=== PATIENT | female | born 1960 | race Hispanic/Latino ===

== ENCOUNTER 2021-12-09 12:59 | Emergency (ER) | payer OTHER ==
--- OUTSIDE RECORDS SUMMARY | 2021-12-09 13:01 | XMS REPORT | Continuity of Care Document ---
:1960 Author Organization [facility] t Address [facility] [address] [place] [address] Care Team Providers Name Role Phone AIDAN Attending Clinician Sin Perez MD S Attending Clinician Payers Payer Name Policy Type Policy Number Effective Date Expiration Date S ource Problems Condition Condition Condition Status Onset Resolution Last Treating Co mments Source Name Details Category Date Date Treatment Clinician Date Subjective Subjective Problem Active U T tinnitus tinnitus Physic i of left of left ans ear ear No known No known Disease Unive rs active active ity of problems problems [facility] History of History of Problem Resolve [place] arthritis arthritis d Phys ici ans Allergies, Adverse Reactions, Alerts Allergy Allergy Status Severity Reaction(s) Onset Inactive Treating Comm ents Source Name Type Date Date Clinician Codeine Propensi Active Itching 2020-0 Univer s ty to 04-03 ity of adverse 00:00: [place] reaction 00 [facility] CODEINE DRUG Active ITCHING 2020-0 Univers INGREDI 04-03 ity of 00:00: [place] 00 [facility] Ibuprofe Propensi Active Swelling 2020-0 Univ ers n ty to 04-03 ity of adverse 00:00: [place] reaction 00 [facility] IBUPROFE DRUG Active Swelling 2020-0 Univer s N INGREDI 04-03 ity of 00:00: [place] 00 [facility] Motrin Allergy Active [place] to drug Physici (finding ans ) NO KNOWN Drug Active Univers ALLERGIE Class ity of S [facility] codeine Allergy Active [place] to drug Physici (finding ans ) Social History Social Habit Start Date Stop Date Quantity Comments Source Sex Assigned At Uni versity [facility] Exposure to SARS-CoV-2 Not sure [facility] [place] (event) [facility] Smoking Status Start Date Stop Date Source Never smoked tobacco (finding) U T Physicians Unknown if ever smoked Universit y [facility] Medications Ordered Filled Start Stop Current Ordering Indication Dosage Frequency Signature Comments Components Source Medication Medication Date Date Medication? Clinician (SIG) Name Name No known No Univers medications [facility] Vital Signs Vital Name Observation Time Observation Value Comments Source Systolic blood 2020-04-04 03:33:00 136 mm[Hg] Univer sity of pressure [facility] Diastolic blood 2020-04-04 03:33:00 84 mm[Hg] Unive rsity of [facility] Heart rate 2020-04-04 03:33:00 72 /min [facility] Body temperature 2020-04-04 03:33:00 36.89 [facility] Respiratory rate 2020-04-04 03:33:00 18 /min [facility] Body height 2020-04-04 03:33:00 165.1 cm [facility] Body weight 2020-04-04 03:33:00 72.122 kg [facility] BMI 2020-04-04 03:33:00 26.46 kg/m2 [facility] Oxygen saturation in 2020-04-04 03:33:00 98 /min [facility] Arterial blood by [facility] Pulse oximetry Branch Procedures Procedure Date / Time Performing Clinician Source Performed CONSENT/REFUSAL FOR 2020-04-04 03:26:49 Doctor Unassigned, No Un [facility] DIAGNOSIS AND TREATMENT Name [facility] [place] History of Tonsillectomy [facility] History of Tubal [facility] Ligation History of Simple Bunion [facility] Exostectomy (Silver Procedure) Encounters Start End Encounter Admission Attending Care Care Encounter Source Date/Time Date/Time Type Type Clinicians Facility Department ID 2020-04-14 2020-04-14 Appointmen MEL HUNT Otorhinolar [id number] [place] 10:00:00 10:00:00 t; Genna, yngology - [facility] jackson RA, M.D. 2020-04-03 2020-04-03 Emergency [facility] [id number] [facility] 22:26:00 23:43:00 [facility] [place] [id number] [facility] [id number] [facility] [id number] [facility] 084 Branch 2020-04-03 2020-04-03 Emergency X [facility] ERT [id number] [facility] 22:26:00 22:26:00 ity [facility] Results This patient has no known results.
--- NOTE | 2021-12-09 14:01 | ER ---
Nurse's Notes [facility] Name: Jenny Rodriguez Age: 61 yrs Sex: Female : 1960 Arrival Date: 12/09/2021 Time: 13:22 Bed DIS2 Private MD: Diagnosis: Laceration without foreign body of other part of head-below right eye Presentation: 12/09 13:54 Chief complaint: Patient states: right scratch under eyelid. Coronavirus screen: At this time, the client does not indicate any symptoms associated with coronavirus-19. Ebola Screen: Patient negative for fever greater than or equal to 101.5 degrees Fahrenheit, and additional compatible Ebola Virus Disease symptoms Patient denies exposure to infectious person. Patient denies travel to an Ebola-affected area in the 21 days before illness onset. No symptoms or risks identified at this time. Risk Assessment: Do you want to hurt yourself or someone else? Patient reports no desire to harm self or others. Onset of symptoms. 13:54 Method Of Arrival: Ambulatory iw 13:54 Acuity: SHAYLA 4 iw Vital Signs: 14:03 BP 117 / 69; Pulse 89; Resp 16; Temp 98.0; Pulse Ox 100% on R/A; iw [place] Coma Score: 13:54 Eye Response: spontaneous(4). Verbal Response: oriented(5). Motor Response: obeys cp commands(6). Total: 15. ED Course: 13:22 Patient arrived in ED. am2 13:24 Andrei Fields PA is PHCP. cp 13:24 Tato Muñoz MD is Attending Physician. cp 13:53 Nell Rosa RN is Primary Nurse. iw 13:54 Triage completed. iw 13:54 Arm band placed on. 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 Exp: iw 09/24/2023. Lot #: [id number]. } Route: IM; Site: right deltoid; Outcome: 14:01 Discharge ordered by . cp 14:06 Patient left the ED. iw Signatures: Nell Rosa RN RN Andrei Fields PA PA Selin Cadet am2
--- NOTE | 2021-12-09 14:01 | EDPHYS ---
Physician Documentation [facility] Name: Jenny Rodriguez Age: 61 yrs Sex: Female : 1960 Arrival Date: 12/09/2021 Time: 13:22 Bed DIS2 Private MD: ED Physician Tato Muñoz HPI: 12/09 13:54 This 61 yrs old Female presents to ER via Unassigned with complaints of Facial Injury - cp scratch under right eye by rooster. 13:54 The patient or guardian reports injury, animal attack. The complaints affect the below cp right eye. Context of injury: Patient reports she was handling a rooster when the animal struck her below right eye. Onset: The symptoms/episode began/occurred 3 hour(s) ago. Associated signs and symptoms: The patient has no apparent associated signs or symptoms. ROS: 13:57 Constitutional: Negative for fever. cp 13:57 Eyes: Negative for discharge, redness, vision loss, visual disturbance. 13:57 Cardiovascular: Negative for chest pain, palpitations. 13:57 Respiratory: Negative for cough, shortness of breath, wheezing. 13:57 Abdomen/GI: Negative for abdominal pain, vomiting, diarrhea, constipation. 13:57 Skin: Positive for erythema, laceration(s), swelling, of the below right eye. 13:57 All other systems are negative. Exam: 13:58 Constitutional: The patient appears in no acute distress, alert, awake, comfortable, cp non-toxic, well developed, well nourished. 13:58 Head/face: Noted is a laceration(s), that is superficial, that is linear, of the below right eye, mild erythema and mild swelling noted. 13:58 Eyes: Pupils: equal, round, and reactive to light and accomodation, Extraocular movements: intact throughout, Conjunctiva: normal, no exudate, no injection, Sclera: no appreciated abnormality, Lids and lashes: appear normal, bilaterally. 13:58 ENT: External ear(s): are unremarkable, Nose: is normal, Posterior pharynx: Airway: no evidence of obstruction, patent. 13:58 Chest/axilla: Inspection: normal. 13:58 Respiratory: the patient does not display signs of respiratory distress, Respirations: normal, no use of accessory muscles, no retractions, labored breathing, is not present. Vital Signs: 14:03 BP 117 / 69; Pulse 89; Resp 16; Temp 98.0; Pulse Ox 100% on R/A; iw [place] Coma Score: 13:54 Eye Response: spontaneous(4). Verbal Response: oriented(5). Motor Response: obeys cp commands(6). Total: 15. MDM: 13:54 Patient medically screened. 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 Exp: iw 09/24/2023. Lot #: [id number]. } Route: IM; Site: right deltoid; Disposition: 18:20 Co-signature as Attending Physician, Tato Muñoz MD. rn Disposition Summary: 12/09/21 14:01 Discharge Ordered Location: Home cp Problem: new cp Symptoms: have improved cp Condition: Stable cp Diagnosis - Laceration without foreign body of other part of head - below right eye cp Followup: cp - With: Private Physician - When: 1 - 2 days - Reason: Worsening of condition Discharge Instructions: - Discharge Summary Sheet cp - Nonsutured Laceration Care cp - Facial Laceration cp Forms: - Medication Reconciliation Form cp - Thank You Letter cp - Antibiotic Education cp - Prescription Opioid Use cp Prescriptions: - mupirocin 2 % Topical ointment - apply 1 application by TOPICAL route 2-3 times daily for 7 days; 15 gram; cp Refills: 0, Product Selection Permitted - Augmentin 875-125 mg Oral Tablet - take 1 tablet by ORAL route every 12 hours for 7 days; 14 tablet; Refills: 0, cp Product Selection Permitted Signatures: Nell Rosa RN RN iw Nieto, Roman, MD MD rn Page, Corey, PA PA cp
[2021-12-09] MEDS ORDERED: TETANUS & DIPHTHERIA TOX,ADULT 0.5 ML VIAL ONE (14:04)
[2021-12-09 14:31] VITALS: BP 117/69; TEMP 98; O2SAT 100
== END 2021-12-09 14:06 | disposition home or self-care (01) ==
LOC: ER 12:59
DX: S01.81XA Laceration without foreign body of other part of head, initial encounter (principal); W61.32XA Struck by chicken, initial encounter; Z23 Encounter for immunization
CPT/HCPCS: 90471; 90714; 99282

== ENCOUNTER 2022-01-17 18:59 | Emergency (ER) | payer OTHER ==
[2022-01-17 20:39] LABS: Urine Blood Trace-intact (Negative); Urine Glucose Negative (Negative); Urine Protein Negative (Negative); Urine Specific Gravity <=1.005 (1.005-1.030)
[2022-01-17 20:51] LABS: Absolute Lymphocytes (CBC) 1.6 K/uL (0.7-4.9); Hematocrit 43.2 % (36.0-45.0); Lymphocytes % 27.5 % (15.3-44.8); MCV 91.9 fL (80-100); MPV 8.4 fL (7.6-11.3)
[2022-01-17 21:39] LABS: Urine Bacteria <20 /HPF (<20); Urine RBC NONE SEEN /HPF (NONE SEEN)
[2022-01-17 22:30] LABS: Albumin 3.8 g/dL (3.4-5.0); Bilirubin Total 0.4 mg/dL (0.2-1.0); Potassium 3.6 mmol/L (3.5-5.1); Protein, Total 7.2 g/dL (6.4-8.2)
--- NOTE | 2022-01-17 22:38 | EDPHYS ---
Physician Documentation [facility] Name: Jenny Rodriguez Age: 61 yrs Sex: Female : 1960 Arrival Date: 01/17/2022 Time: 19:01 Bed 6 Private MD: ED Physician Tato Muñoz Historical: - Allergies: 01/17 19:51 Codeine; as6 19:51 Ibuprofen; as6 - Home Meds: 19:51 None [Active]; as6 - PMHx: 19:51 None; as6 - PSHx: 19:51 Tonsillectomy; Ligation of fallopian tube; as6 - Immunization history:: Client reports receiving the 2nd dose of the Covid vaccine, moderna . - Social history:: Smoking status: Patient denies any tobacco usage or history of. Vital Signs: 19:48 BP 139 / 84; Pulse 76; Resp 18 S; Temp 98.2(O); Pulse Ox 100% on R/A; Weight 76.66 kg as6 (R); Height 5 ft. 2 in. (157.48 cm) (R); Pain 1/10; 20:45 BP 115 / 75; Pulse 74; Resp 16; Pulse Ox 97% ; aa9 22:35 BP 137 / 77; Pulse 68; Resp 18 S; Pulse Ox 98% on R/A; aa9 19:48 Body Mass Index 30.91 (76.66 kg, 157.48 cm) as6 MDM: 19:52 Patient medically screened. cp 22:37 ED course: VSS. Patient reports she doesn't want to wait to have CT abdomen/pelvis done cp and requesting to be discharged to home. 01/17 20:15 Order name: CBC with Diff; Complete Time: 22:29 cp 01/17 22:29 Interpretation: Reviewed. cp 01/17 20:15 Order name: CMP; Complete Time: 22:36 cp 01/17 20:15 Order name: Lipase; Complete Time: 22:36 cp 01/17 20:15 Order name: Urine Microscopic Only; Complete Time: 22:29 cp 01/17 22:29 Interpretation: Reviewed. cp 01/17 20:40 Order name: Urine Dipstick-Ancillary; Complete Time: 22:29 EDMS 01/17 22:29 Interpretation: Normal except: UBLD Trace-intact. cp 01/17 20:15 Order name: IV Saline Lock; Complete Time: 20:34 cp 01/17 20:15 Order name: Labs collected and sent; Complete Time: 20:34 cp 01/17 20:15 Order name: Urine Dipstick-Ancillary (obtain specimen); Complete Time: 20:39 cp Administered Medications: No medications were administered Disposition Summary: 01/17/22 22:38 Discharge Ordered Location: Home cp Problem: new cp Symptoms: are unchanged cp Condition: Stable cp Diagnosis - Lower abdominal pain, unspecified cp Followup: cp - With: Private Physician - When: 1 - 2 days - Reason: Recheck today's complaints Discharge Instructions: - Discharge Summary Sheet cp - Abdominal Pain, Adult cp Forms: - Medication Reconciliation Form cp - Thank You Letter cp - Antibiotic Education cp - Prescription Opioid Use cp Signatures: Dispatcher [employer] EDMS Andrei Fields PA PA cp Reji Christine, RN RN as6
--- NOTE | 2022-01-17 22:38 | ER ---
Nurse's Notes [facility] Name: Jenny Rodriguez Age: 61 yrs Sex: Female : 1960 Arrival Date: 01/17/2022 Time: 19:01 Bed 6 Private MD: Diagnosis: Lower abdominal pain, unspecified Presentation: 01/17 19:48 Chief complaint: Patient states: "I have this discomfort right here" pt c/o RLQ pain. as6 Coronavirus screen: At this time, the client does not indicate any symptoms associated with coronavirus-19. Ebola Screen: No symptoms or risks identified at this time. Risk Assessment: Do you want to hurt yourself or someone else? Patient reports no desire to harm self or others. Onset of symptoms is unknown. 19:48 Method Of Arrival: Ambulatory as6 19:48 Acuity: SHAYLA 3 as6 20:16 Initial Sepsis Screen: Does the patient meet any 2 criteria? No. Patient's initial aa9 sepsis screen is negative. Does the patient have a suspected source of infection? No. Patient's initial sepsis screen is negative. Triage Assessment: 20:16 General: Appears in no apparent distress. comfortable, Behavior is calm, cooperative. aa9 Pain: Complains of pain in right lower quadrant. Neuro: Level of Consciousness is awake, alert. Respiratory: Respiratory effort is even, unlabored. GI: Reports lower abdominal pain. Historical: - Allergies: 19:51 Codeine; as6 19:51 Ibuprofen; as6 - Home Meds: 19:51 None [Active]; as6 - PMHx: 19:51 None; as6 - PSHx: 19:51 Tonsillectomy; Ligation of fallopian tube; as6 - Immunization history:: Client reports receiving the 2nd dose of the Covid vaccine, moderna . - Social history:: Smoking status: Patient denies any tobacco usage or history of. Screenin:52 Abuse screen: Denies threats or abuse. Denies injuries from another. Nutritional as6 screening: No deficits noted. Tuberculosis screening: No symptoms or risk factors identified. Fall Risk None identified. Assessment: 22:35 Reassessment: see triage assessment. aa9 Vital Signs: 19:48 BP 139 / 84; Pulse 76; Resp 18 S; Temp 98.2(O); Pulse Ox 100% on R/A; Weight 76.66 kg as6 (R); Height 5 ft. 2 in. (157.48 cm) (R); Pain 1/10; 20:45 BP 115 / 75; Pulse 74; Resp 16; Pulse Ox 97% ; aa9 22:35 BP 137 / 77; Pulse 68; Resp 18 S; Pulse Ox 98% on R/A; aa9 19:48 Body Mass Index 30.91 (76.66 kg, 157.48 cm) as6 ED Course: 19:01 Patient arrived in ED. rg4 19:23 Andrei Fields PA is PHCP. cp 19:23 Tato Muñoz MD is Attending Physician. cp 19:45 Reji Christine, RN is Primary Nurse. as6 19:51 Triage completed. as6 19:52 Arm band placed on. as6 20:16 Bed in low position. Call light in reach. Side rails up X2. Pulse ox on. NIBP on. aa9 20:34 Inserted saline lock: 18 gauge in right antecubital area, using aseptic technique. aa9 Blood collected. 20:34 CBC with Diff Sent. aa9 20:34 CMP Sent. aa9 20:34 Lipase Sent. aa9 20:39 Urine Microscopic Only Sent. as6 22:41 No provider procedures requiring assistance completed. IV discontinued, intact, aa9 bleeding controlled, No redness/swelling at site. Pressure dressing applied. Administered Medications: No medications were administered Medication: 22:35 VIS not applicable for this client. aa9 Outcome: 22:38 Discharge ordered by . cp 22:41 Discharged to home ambulatory. aa9 22:41 Condition: stable 22:41 Discharge instructions given to patient, Instructed on discharge instructions, follow up and referral plans. Demonstrated understanding of instructions, follow-up care. 22:41 Patient left the ED. aa9 Signatures: Andrei Fields PA PA cp Garcia, Rubi rg4 Reji Christine, ZIGGY RN as6 Stacia Miller, ZIGGY RN aa9
[2022-01-17 23:10] VITALS: TEMP 98.2
[2022-01-17 23:13] VITALS: BP 137/77; O2SAT 98
== END 2022-01-17 22:41 | disposition home or self-care (01) ==
LOC: ER 18:59
DX: R10.31 Right lower quadrant pain (principal); Z88.5 Allergy status to narcotic agent; Z88.6 Allergy status to analgesic agent
CPT/HCPCS: 36415; 80053; 81003; 81015; 83690; 85025

== ENCOUNTER 2022-11-08 19:38 | Emergency (ER) | payer OTHER ==
--- NOTE | 2022-11-08 21:22 | RAD REPORT ---
EXAM DESCRIPTION: [place] Single View11/08/2022 9:12 pm CLINICAL HISTORY: epigastric pain COMPARISON: No comparisons TECHNIQUE: Portable AP view of the chest. FINDINGS: The lungs are clear.Mild haziness in the medial lung bases, could be artifactual, related to superimposition of soft tissues. No pneumothorax or effusion. The cardiomediastinal contours are u nremarkable. IMPRESSION: No acute cardiopulmonary process.
[2022-11-08 21:37] LABS: Absolute Lymphocytes (CBC) 1.7 K/uL (0.7-4.9); Hematocrit 40.5 % (36.0-45.0); Lymphocytes % 25.6 % (15.3-44.8); MCV 91.6 fL (80-100); MPV 7.9 fL (7.6-11.3); RBC Red Blood Cell Count 4.42 M/uL (3.86-4.86)
[2022-11-08 21:47] LABS: Protime INR 0.95
[2022-11-08 22:12] LABS: Albumin 4.1 g/dL (3.4-5.0); Bilirubin Direct 0.1 mg/dL (0-0.2); Bilirubin Total 0.4 mg/dL (0.2-1.0); Magnesium 2.1 mg/dL (1.6-2.4); Potassium 3.7 mEq/L (3.5-5.1); Protein, Total 7.8 g/dL (6.4-8.2); Troponin High Sensitivity 5.2 pg/mL (<58.9)
--- NOTE | 2022-11-08 22:49 | RAD REPORT ---
EXAM DESCRIPTION: US - Abdomen Exam Limited - 11/08/2022 10:21 pm CLINICAL HISTORY: EPIGASTRIC PAIN COMPARISON: No comparisons TECHNIQUE: Sonographic grayscale and color flow images of the right upper abdominal quadrant were obtained. FINDINGS: The gallbladder demonstrates no gallstones. No pericholecystic fluid or gallbladder wall t hickening. The common bile duct is normal measuring 2 mm. The liver demonstrates no findings of intrahepatic biliary dilatation. IMPRESSION: Normal ultrasound examination of the right upper quadrant.
[2022-11-08] MEDS ORDERED: MAGNES/ALUMIN/SIMET 30ML UCUP ONE (23:09)
[2022-11-08] MEDS ORDERED: MORPHINE 2 MG/ML SYR ONE (23:10)
[2022-11-08] MEDS ORDERED: ONDANSETRON 4 MG/2 ML VIAL ONE (23:10)
[2022-11-08] MEDS ORDERED: FAMOTIDINE 20 MG/2 ML VIAL IV ONE (23:10)
[2022-11-08] MEDS ORDERED: LIDOCAINE VISCOUS 2% SOLN 15 ML UDC ONE (23:10)
--- NOTE | 2022-11-08 23:52 | ER ---
Nurse's Notes [facility] Name: Jenny Rodriguez Age: 62 yrs Sex: Female : 1960 Arrival Date: 11/08/2022 Time: 19:38 Bed 8 Private MD: Diagnosis: Epigastric pain;Nausea Presentation: 11/08 19:54 Chief complaint: Patient states: epigastric pain x 2 days worse after eating. Coronavirus screen: Vaccine status: Patient reports receiving the 2nd dose of the covid vaccine. Ebola Screen: Patient negative for fever greater than or equal to 101.5 degrees Fahrenheit, and additional compatible Ebola Virus Disease symptoms. Initial Sepsis Screen: Does the patient meet any 2 criteria? No. Patient's initial sepsis screen is negative. Does the patient have a suspected source of infection? No. Patient's initial sepsis screen is negative. Risk Assessment: Do you want to hurt yourself or someone else? Patient reports no desire to harm self or others. 19:54 Method Of Arrival: Ambulatory 19:54 Acuity: SHAYLA 3 11/09 00:30 Onset of symptoms was November 09, 2022. aa9 Triage Assessment: 11/08 19:57 General: Appears uncomfortable, well groomed, well developed, Behavior is calm, kl cooperative. Pain: Complains of pain in xiphoid area. GI: Reports nausea. Historical: - Allergies: 19:56 Codeine; kl 19:56 Ibuprofen; kl 19:56 NSAIDS (Non-Steroidal Anti-Inflammatory Drug); kl 19:56 unknown steroid; kl - PSHx: 19:56 Ligation of fallopian tube; Tonsillectomy; kl - Immunization history:: Adult Immunizations Flu vaccine is up to date. - Social history:: Smoking status: Patient denies any tobacco usage or history of. Screenin:19 [facility] ED Fall Risk Assessment (Adult) History of falling in the last 3 months, aa9 including since admission No falls in past 3 months (0 pts) Confusion or Disorientation No (0 pts) Intoxicated or Sedated No (0 pts) Impaired Gait No (0 pts) Mobility Assist Device Used No (0 pt) Altered Elimination No (0 pt) Score/Fall Risk Level 0 - 2 = Low Risk Oriented to surroundings, Maintained a safe environment. Abuse screen: Denies threats or abuse. Denies injuries from another. Nutritional screening: Has had N/V for 3 or more days. Tuberculosis screening: No symptoms or risk factors identified. Assessment: 23:18 General: Appears in no apparent distress. comfortable, Behavior is calm, cooperative. aa9 Pain: Complains of pain in abdomen. Neuro: Level of Consciousness is awake, alert, obeys commands, Oriented to person, place, time, situation. Respiratory: Airway is patent Respiratory effort is even, unlabored. GI: Reports nausea. 11/09 00:30 GI: Bowel sounds present X 4 quads. aa9 00:30 Reassessment: Patient appears in no apparent distress at this time. Patient is alert, aa9 oriented x 3, equal unlabored respirations, skin warm/dry/pink. Patient denies pain at this time. Patient states feeling better. Patient states symptoms have improved. Vital Signs: 11/08 19:54 BP 140 / 74; Pulse 77; Resp 18; Temp 99(TE); Pulse Ox 97% on R/A; Weight 78.47 kg; kl Height 5 ft. 5 in. ; Pain 6/10; 23:18 BP 108 / 96; Pulse 85; Resp 18 S; Pulse Ox 100% ; aa9 23:39 BP 125 / 74; Pulse 81; Resp 17 S; Pulse Ox 96% on R/A; aa9 11/09 00:00 BP 131 / 79; Pulse 67; Resp 17 S; Pulse Ox 98% ; aa9 00:30 BP 125 / 85; Pulse 82; Resp 15; Temp 98.5; Pulse Ox 96% on R/A; aa9 11/08 19:54 Body Mass Index 28.79 (78.47 kg, 165.1 cm) 11/08 19:54 Pain Scale: Adult ED Course: 11/08 19:42 Patient arrived in ED. mr 19:45 Andrei Fields PA is PHCP. cp 19:45 Andrei Grey MD is Attending Physician. cp 19:56 Triage completed. kl 21:14 XRAY Chest (1 view) In Process Unspecified. EDMS 21:25 Lipase Sent. bc6 21:25 Basic Metabolic Panel Sent. bc6 21:25 CBC with Diff Sent. bc6 21:25 LFT's Sent. bc6 21:25 Magnesium Sent. bc6 21:25 Troponin HS Sent. bc6 21:25 Initial lab(s) drawn, by me, sent to lab. Inserted saline lock: 20 gauge in left bc6 antecubital area, using aseptic technique. 22:23 US Abdomen Limited In Process Unspecified. EDMS 23:17 Stacia Miller, RN is Primary Nurse. aa9 23:19 Patient has correct armband on for positive identification. Placed in gown. Bed in low aa9 position. Call light in reach. Side rails up X2. Pulse ox on. NIBP on. Door closed. Warm blanket given. 11/09 00:29 No provider procedures requiring assistance completed. IV discontinued, intact, aa9 bleeding controlled, No redness/swelling at site. Pressure dressing applied. 00:30 Arm band placed on. aa9 Administered Medications: 11/08 23:00 Drug: Ondansetron IVP 4 mg Route: IVP; Site: left antecubital; aa9 11/09 00:29 Follow up: Response: No adverse reaction aa9 11/08 23:10 Drug: Famotidine IVP 20 mg Route: IVP; Site: left antecubital; aa9 11/09 00:29 Follow up: Response: No adverse reaction aa9 11/08 23:18 Drug: morphine IVP or IV 2 mg Route: IVP; Infused Over: 4 mins; Site: left antecubital; aa9 11/09 00:29 Follow up: Response: No adverse reaction; Pain is decreased aa9 11/08 23:18 Drug: GI Cocktail without - (Maalox PO Suspension 30 ml, Lidocaine Mucous aa9 Membrane Liquid 2 % 15 ml) Route: PO; 11/09 00:29 Follow up: Response: No adverse reaction aa9 Medication: 00:30 VIS not applicable for this client. aa9 Outcome: 11/08 23:52 Discharge ordered by . syeda 11/09 00:29 Discharged to home ambulatory. aa9 Condition: stable Discharge instructions given to patient, Instructed on discharge instructions, follow up and referral plans. medication usage, Demonstrated understanding of instructions, follow-up care, medications, Prescriptions given X 2. 00:30 Patient left the ED. aa9 Signatures: Dispatcher [employer] EDDaksha Peoples RN RN kl Rivera, Mary mr Page, Corey, PA PA Stacia Santos, RN RN aa9 Heather Hilliard bc6
--- NOTE | 2022-11-08 23:52 | EDPHYS ---
Physician Documentation [facility] Name: Jenny Rodriguez Age: 62 yrs Sex: Female : 1960 Arrival Date: 11/08/2022 Time: 19:38 Bed 8 Private MD: Andrei Null HPI: 11/08 21:00 This 62 yrs old Female presents to ER via Ambulatory with complaints of cp Abdominal Pain. 21:00 The patient presents with abdominal pain in the epigastric area. Onset: The cp symptoms/episode began/occurred 2 day(s) ago. Historical: - Allergies: 19:56 Codeine; kl 19:56 Ibuprofen; kl 19:56 NSAIDS (Non-Steroidal Anti-Inflammatory Drug); kl 19:56 unknown steroid; kl - PSHx: 19:56 Ligation of fallopian tube; Tonsillectomy; kl - Immunization history:: Adult Immunizations Flu vaccine is up to date. - Social history:: Smoking status: Patient denies any tobacco usage or history of. ROS: 21:35 Constitutional: Negative for body aches, chills, fever, poor PO intake. cp 21:35 Eyes: Negative for injury, pain, redness, and discharge. cp 21:35 Cardiovascular: Negative for chest pain, edema, palpitations. 21:35 Respiratory: Negative for cough, shortness of breath, wheezing. 21:35 Abdomen/GI: Positive for abdominal pain, nausea. 21:35 All other systems are negative. cp Exam: 21:36 ECG was reviewed by the Attending Physician. cp 21:40 Constitutional: The patient appears in no acute distress, alert, awake, cp non-diaphoretic, non-toxic, well developed, well nourished. 21:40 Head/Face: Normocephalic, atraumatic. cp 21:40 Chest/axilla: Inspection: normal. 21:40 Cardiovascular: Rate: normal, Rhythm: regular. 21:40 Respiratory: the patient does not display signs of respiratory distress, Respirations: normal, Breath sounds: are clear throughout, no decreased breath sounds. 21:40 Abdomen/GI: Inspection: abdomen appears normal, Palpation: soft, in all quadrants, moderate abdominal tenderness, in the epigastric area. Vital Signs: 19:54 BP 140 / 74; Pulse 77; Resp 18; Temp 99(TE); Pulse Ox 97% on R/A; Weight 78.47 kg; kl Height 5 ft. 5 in. ; Pain 6/10; 23:18 BP 108 / 96; Pulse 85; Resp 18 S; Pulse Ox 100% ; aa9 23:39 BP 125 / 74; Pulse 81; Resp 17 S; Pulse Ox 96% on R/A; aa9 11/09 00:00 BP 131 / 79; Pulse 67; Resp 17 S; Pulse Ox 98% ; aa9 00:30 BP 125 / 85; Pulse 82; Resp 15; Temp 98.5; Pulse Ox 96% on R/A; aa9 11/08 19:54 Body Mass Index 28.79 (78.47 kg, 165.1 cm) 11/08 19:54 Pain Scale: Adult kl MDM: 11/08 19:58 Patient medically screened. [facility] 23:52 Data reviewed: vital signs, nurses notes, lab test result(s), EKG, radiologic studies. 11/08 20:53 Order name: Basic Metabolic Panel; Complete Time: 22:57 11/08 23:10 Interpretation: Reviewed. 11/08 20:53 Order name: CBC with Diff; Complete Time: 22:57 11/08 23:10 Interpretation: Reviewed. 11/08 20:53 Order name: LFT's; Complete Time: 22:57 11/08 23:10 Interpretation: Normal except: GLOB 3.7. 11/08 20:53 Order name: Magnesium; Complete Time: 22:57 11/08 20:53 Order name: PT-INR; Complete Time: 22:57 11/08 20:53 Order name: Troponin HS; Complete Time: 22:57 11/08 23:10 Interpretation: Reviewed. 11/08 20:53 Order name: Lipase; Complete Time: 22:57 11/08 20:53 Order name: XRAY Chest (1 view); Complete Time: 22:57 11/08 23:10 Interpretation: Report review. 11/08 21:24 Order name: US Abdomen Limited; Complete Time: 22:57 11/08 23:11 Interpretation: Report reviewed. 11/08 20:53 Order name: EKG; Complete Time: 20:54 11/08 20:53 Order name: Cardiac monitoring; Complete Time: 23:18 11/08 20:53 Order name: EKG - Nurse/Tech; Complete Time: : cp 11/08 20:53 Order name: IV Saline Lock; Complete Time: : cp 11/08 20:53 Order name: Labs collected and sent; Complete Time: : cp 11/08 20:53 Order name: O2 Per Protocol; Complete Time: : cp 11/08 20:53 Order name: O2 Sat Monitoring; Complete Time: :18 cp EC:36 Rate is 67 beats/min. Rhythm is regular. MI interval is normal. QRS interval is cp prolonged at 124 msec. QT interval is normal. T waves are Inverted in leads III, aVF, aVR, V2, V3, V4, V5. Interpreted by me. Reviewed by me. Administered Medications: 23:00 Drug: Ondansetron IVP 4 mg Route: IVP; Site: left antecubital; aa9 11/09 00:29 Follow up: Response: No adverse reaction 9 11/08 23:10 Drug: Famotidine IVP 20 mg Route: IVP; Site: left antecubital; aa9 11/09 00:29 Follow up: Response: No adverse reaction 9 11/08 23:18 Drug: morphine IVP or IV 2 mg Route: IVP; Infused Over: 4 mins; Site: left antecubital; aa9 11/09 00:29 Follow up: Response: No adverse reaction; Pain is decreased aa9 11/08 23:18 Drug: GI Cocktail without - (Maalox PO Suspension 30 ml, Lidocaine Mucous aa9 Membrane Liquid 2 % 15 ml) Route: PO; 11/09 00:29 Follow up: Response: No adverse reaction aa9 Disposition Summary: 11/08/22 23:52 Discharge Ordered Location: Home cp Problem: new cp Symptoms: have improved cp Condition: Stable cp Diagnosis - Epigastric pain cp - Nausea cp Followup: cp - With: Private Physician - When: 2 - 3 days - Reason: Recheck today's complaints Discharge Instructions: - Discharge Summary Sheet cp - Abdominal Pain, Adult cp - Gastroesophageal Reflux Disease, Adult cp - Nausea, Adult cp Forms: - Medication Reconciliation Form cp - Thank You Letter cp - Antibiotic Education cp - Prescription Opioid Use cp Prescriptions: - Protonix 40 mg Oral Tablet - take 1 tablet by ORAL route once daily; 30 tablet; Refills: 0, Product cp Selection Permitted - Zofran 4 mg Oral Tablet - take 1 tablet by ORAL route every 12 hours As needed; 20 tablet; Refills: 0, cp Product Selection Permitted Signatures: Dispatcher [employer] Daksha Gerard, RN Andrei Burleson MD MD cha Page, Corey, PA PA Stacia Santos RN RN aa9 Corrections: (The following items were deleted from the chart) 03:27 04 21:36 Rate is 67 beats/min. Rhythm is regular. MI interval is normal. QRS cp interval is prolonged at 124 msec. QT interval is normal. T waves are Inverted in leads III, aVF, aVR. Interpreted by me. Reviewed by me. cp
[2022-11-09 01:31] VITALS: BP 125/85; TEMP 98.5; O2SAT 96
--- NOTE | 2022-11-10 07:04 | EKG ---
Test Date: 2022-11-08 Test Time: 21:30:31 [employer] Crib Attendant: ENMANUEL MEASUREMENT RESULTS: Intervals: Rate: 67 NC: 138 QRSD: 124 QT: 438 QTc: 462 [place]: P: 7 NC: 138 QRS: 2 T: -9 INTERPRETIVE STATEMENTS: Normal sinus rhythm Right bundle branch block Abnormal ECG No previous ECG available for comparison Electronically Signed On 11-10-22 07:00:18 CDT by Devin Santana
== END 2022-11-09 00:30 | disposition home or self-care (01) ==
LOC: ER 19:38
DX: R10.13 Epigastric pain (principal); R11.0 Nausea; Z88.5 Allergy status to narcotic agent; Z88.6 Allergy status to analgesic agent; Z88.8 Allergy status to other drugs, medicaments and biological substances
CPT/HCPCS: 93005; 85025; 80048; 36415; 83735; 85610; 80076; 84484; 83690; 71045; 76705; J2270; J2405

== ENCOUNTER 2022-11-23 19:32 | Observation (INO) | payer OTHER ==
--- NOTE | 2022-11-23 20:07 | RAD REPORT ---
EXAM DESCRIPTION: CT - Ct Stroke Brain Wo Cont - 11/23/2022 8:01 pm CLINICAL HISTORY: STROKE ALERT COMPARISON: No comparisons TECHNIQUE: All CT scans are performed using dose optimization technique as appropriate and may inclu de automated exposure control or mA/KV adjustment according to patient size. FINDINGS: No intracranial hemorrhage, hydrocephalus or extra-axial fluid collection.No areas of brai n edema or evidence of midline shift. Arachnoid cyst at the left middle cranial fossa. The paranasal sinuses and mastoids are clear. The calvarium is intact. IMPRESSION: No acute intracranial abnormality. Conveyed to Dr. Weiss by Dr. Nolen at 2002 on 11/23/22
--- NOTE | 2022-11-23 20:38 | RAD REPORT ---
EXAM DESCRIPTION: CT - Neck Angio - 11/23/2022 8:14 pm CLINICAL HISTORY: tia COMPARISON: <Comparisons> TECHNIQUE: CT angiography of the neck vessels was performed with maximum intensity reformatted image s. All CT scans are performed using dose optimization technique as appropriate and may include automated exposure control or mA/KV adjustment according to patient size. FINDINGS: A left aortic arch is identified with normal three vessel configuration of the great vesse ls. No significant flow abnormality is seen of the common carotid bilaterally. No significant stenosis is identified involving the cervical segments of both internal carotid arteri es. Normal flow is seen within both vertebral arteries. CAROTID STENOSIS REFERENCE USING NASCET CRITERIA: Mild - <50% stenosis. Moderate - 50-69% stenosis. Severe - 70-94% stenosis. Near occlusion - 95-99% stenosis. Occluded - 100% stenosis. IMPRESSION: No significant flow abnormality of the neck vessels is identified.
--- NOTE | 2022-11-23 20:39 | RAD REPORT ---
EXAM DESCRIPTION: CT - Head angio - 11/23/2022 8:14 pm CLINICAL HISTORY: TIA COMPARISON: No comparisonsCt Stroke Brain Wo Cont dated 11/23/2022 TECHNIQUE: CT angiography of the head was performed with maximum intensity reformatted images. All CT scans are performed using dose optimization technique as appropriate and may include automated exposure control or mA/KV adjustment according to patient size. FINDINGS: Anterior circulation: No aneurysm or large vessel occlusion. No hemodynamically significant stenosis. No arteriovenous malf ormation identified. Posterior circulation: No aneurysm or large vessel occlusion. No hemodynamically significant stenosis. No arteriovenous malf ormation identified. CAROTID STENOSIS REFERENCE USING NASCET CRITERIA: Mild - <50% stenosis. Moderate - 50-69% stenosis. Severe - 70-94% stenosis. Near occlusion - 95-99% stenosis. Occluded - 100% stenosis. IMPRESSION: No significant flow abnormality is detected.
[2022-11-23 20:41] LABS: Absolute Lymphocytes (CBC) 1.4 K/uL (0.7-4.9); Lymphocytes % 27.3 % (15.3-44.8); MCV 91.9 fL (80-100); MPV 8.5 fL (7.6-11.3); RBC Red Blood Cell Count 4.24 M/uL (3.86-4.86)
--- NOTE | 2022-11-23 20:59 | EDPHYS ---
Physician Documentation [facility] Name: Jenny Rodriguez Age: 62 yrs Sex: Female : 1960 Arrival Date: 11/23/2022 Time: 19:32 Bed 8 Private MD: ED Physician Cayetano Weiss HPI: 11/23 20:58 This 62 yrs old Female presents to ER via Ambulatory with complaints of rt Tingling on the Left Side. 20:58 Patient presents to the ED with an intermittent tingling involving her left arm, left rt leg, the left side of her face that has been intermittent for the past 3 days. She denies any speech disturbance, motor weakness. She states that symptoms have significantly improved, presents for work-up for possible TIA. Denies other acute complaints at this time. Symptoms are moderate severity, no other aggravating or alleviating factors. Historical: - Allergies: 19:48 Codeine; kd3 19:48 NSAIDS (Non-Steroidal Anti-Inflammatory Drug); kd3 19:48 UNKNOWN STEROID; kd3 19:48 Ibuprofen; kd3 - PSHx: 19:48 Ligation of fallopian tube; Tonsillectomy; kd3 - Immunization history:: Adult Immunizations up to date. - Social history:: Smoking status: Patient denies any tobacco usage or history of. - Family history:: not pertinent. ROS: 20:58 Constitutional: Negative for fever, chills, and weight loss, Cardiovascular: Negative rt for chest pain, palpitations, and edema, Respiratory: Negative for shortness of breath, cough, wheezing, and pleuritic chest pain, Abdomen/GI: Negative for abdominal pain, nausea, vomiting, diarrhea, and constipation, MS/Extremity: Negative for injury and deformity, Skin: Negative for injury, rash, and discoloration, Psych: Negative for depression, anxiety, suicide ideation, homicidal ideation, and hallucinations. 20:58 Neuro: Positive for tingling, Negative for weakness. Exam: 20:58 Radiologist reports: No acute findings rt 20:58 Constitutional: This is a well developed, well nourished patient who is awake, alert, and in no acute distress. Head/Face: Normocephalic, atraumatic. Chest/axilla: Normal chest wall appearance and motion. Nontender with no deformity. No lesions are appreciated. Cardiovascular: Regular rate and rhythm with a normal S1 and S2. No gallops, murmurs, or rubs. Normal PMI, no JVD. No pulse deficits. Respiratory: Lungs have equal breath sounds bilaterally, clear to auscultation and percussion. No rales, rhonchi or wheezes noted. No increased work of breathing, no retractions or nasal flaring. Abdomen/GI: Soft, non-tender, with normal bowel sounds. No distension or tympany. No guarding or rebound. No evidence of tenderness throughout. Skin: Warm, dry with normal turgor. Normal color with no rashes, no lesions, and no evidence of cellulitis. MS/ Extremity: Pulses equal, no cyanosis. Neurovascular intact. Full, normal range of motion. Psych: Awake, alert, with orientation to person, place and time. Behavior, mood, and affect are within normal limits. 20:58 Eyes: Extraocular muscles intact, no visual field deficits. 20:58 Neuro: Speech normal, cranial nerves II through XII intact, strength and sensation intact in upper and lower extremities. Vital Signs: 19:41 Pulse 101; Resp 19; Temp 98.1(TE); Pulse Ox 98% on R/A; Weight 73.94 kg; Height 5 ft. 3 kd3 in. ; 19:48 BP 144 / 83; kd3 21:22 BP 144 / 82; Pulse 95; Resp 19; Pulse Ox 97% on R/A; pf1 21:46 BP 125 / 81; Pulse 81; Resp 17; Temp 98.5; Pulse Ox 100% on R/A; aa9 19:41 Body Mass Index 28.87 (73.94 kg, 160.02 cm) kd3 MDM: 19:46 Patient medically screened. rt 20:58 Differential diagnosis: TIA, CVA. Data reviewed: vital signs, nurses notes, lab test rt result(s), EKG, radiologic studies. Consideration of Admission/Observation Escalation of care including admission/observation considered. Management of patient was discussed with the following: Hospitalist: Agrees to admit. I considered the following discharge prescriptions or medication management in the emergency department Medications were administered in the Emergency Department. See MAR. Independent interpretation of the following test(s) in the Emergency Department CT Scan: My interpretation is No hemorrhage seen on interpretation of the CT scan images. Discussion of test interpretation with radiology: I had a discussion with radiology regarding a test interpretation. No hemorrhage. Care significantly affected by the following chronic conditions: Hypertension. Counseling: I had a detailed discussion with the patient and/or guardian regarding: the historical points, exam findings, and any diagnostic results supporting the discharge/admit diagnosis, radiology results, the need for further work-up and treatment in the hospital. 11/23 19:47 Order name: Basic Metabolic Panel; Complete Time: 21:15 rt 11/23 19:47 Order name: CBC with Diff; Complete Time: 21:15 rt 11/23 19:47 Order name: Hepatic Function; Complete Time: 21:15 rt 11/23 19:47 Order name: High Sensitivity Troponin; Complete Time: 21:15 rt 11/23 19:47 Order name: Magnesium; Complete Time: 21:15 rt 11/23 19:47 Order name: Protime (+inr); Complete Time: 21:15 rt 11/23 19:47 Order name: Ptt, Activated; Complete Time: 21:15 rt 11/23 21:52 Order name: Glucose, Ancillary Testing EDMS 11/23 19:47 Order name: CT Stroke Brain w/o Contrast; Complete Time: 20:51 rt 11/23 19:47 Order name: Stroke CXR 1 View; Complete Time: 21:15 rt 11/23 20:02 Order name: Head Angio CT; Complete Time: 20:51 rt 11/23 20:02 Order name: Neck Angio CT; Complete Time: 20:51 rt 11/23 19:47 Order name: EKG; Complete Time: 19:48 rt 11/23 19:47 Order name: Accucheck; Complete Time: 21:43 rt 11/23 19:47 Order name: Cardiac monitoring; Complete Time: 21:43 rt 11/23 19:47 Order name: EKG - Nurse/Tech; Complete Time: 21:43 rt 11/23 19:47 Order name: IV Saline Lock; Complete Time: 20:33 rt 11/23 19:47 Order name: Labs collected and sent; Complete Time: 20:33 rt 11/23 19:47 Order name: NPO; Complete Time: 21:43 rt 11/23 19:47 Order name: O2 Per Protocol; Complete Time: 20:33 rt 11/23 19:47 Order name: O2 Sat Monitoring; Complete Time: 20:33 rt 11/23 19:47 Order name: Stroke Swallow Screen; Complete Time: 21:43 rt 11/23 21:31 Order name: Misc. Order: Document NIH, perform bedside swallow screen; Complete Time: la1 21:43 Administered Medications: 21:45 Drug: Aspirin PO 325 mg Route: PO; aa9 22:59 Follow up: Response: No adverse reaction aa9 22:21 Drug: Potassium PO Effervescent Tablet 50 mEq Route: PO; aa9 22:59 Follow up: Response: No adverse reaction aa9 Disposition Summary: 11/23/22 20:58 Hospitalization Ordered Hospitalization Status: Observation rt Provider: Claus Friend rt Location: Telemetry/MedSurg (observation) rt Condition: Stable rt Problem: new rt Symptoms: have improved rt Bed/Room Type: Standard rt Room Assignment: 414(11/23/22 21:57) cg Diagnosis - Transient cerebral ischemic attack, unspecified rt Forms: - Medication Reconciliation Form rt - SBAR form rt Signatures: Dispatcher [employer] EDSameer Pedroza, SHUFFLE BOARD OPERATOR-C SHUFFLE BOARD OPERATOR-Cla1 Ana Priest RN RN cg Quiana Spears RN RN kd3 Stacia Miller RN RN aa9 Cayetano Weiss MD MD rt Corrections: (The following items were deleted from the chart) :57 20:58 rt cg
--- NOTE | 2022-11-23 20:59 | ER ---
Nurse's Notes [facility] Name: Jenny Rodriguez Age: 62 yrs Sex: Female : 1960 Arrival Date: 11/23/2022 Time: 19:32 Bed 8 Private MD: Diagnosis: Transient cerebral ischemic attack, unspecified Presentation: 11/23 19:41 Chief complaint: Patient states: I started with tingling sensation in my left leg and kd3 it went up to my left arm and a little bit around my left cheek. It last for about an hour and then it goes away. This all started 3 days ago. I have had no real weakness. just a bit of numbness that comes and goes. Coronavirus screen: Vaccine status: Patient reports receiving the 2nd dose of the covid vaccine. Ebola Screen: No symptoms or risks identified at this time. Initial Sepsis Screen: Does the patient meet any 2 criteria? No. Patient's initial sepsis screen is negative. Does the patient have a suspected source of infection? No. Patient's initial sepsis screen is negative. Risk Assessment: Do you want to hurt yourself or someone else? Patient reports no desire to harm self or others. Onset of symptoms was November 20, 2022. 19:41 Method Of Arrival: Ambulatory kd3 19:41 Acuity: SHAYLA 3 kd3 Triage Assessment: 19:48 General: Appears uncomfortable, Behavior is anxious. Pain: Denies pain. Neuro: Level of kd3 Consciousness is awake, alert, obeys commands, Oriented to person, place, time, situation. Neuro: Reports numbness in left cheek, left arm and left leg. Cardiovascular: Patient's skin is warm and dry. Respiratory: Airway is patent Trachea midline Respiratory effort is even, unlabored, Respiratory pattern is regular, symmetrical. Historical: - Allergies: 19:48 Codeine; kd3 19:48 NSAIDS (Non-Steroidal Anti-Inflammatory Drug); kd3 19:48 UNKNOWN STEROID; kd3 19:48 Ibuprofen; kd3 - PSHx: 19:48 Ligation of fallopian tube; Tonsillectomy; kd3 - Immunization history:: Adult Immunizations up to date. - Social history:: Smoking status: Patient denies any tobacco usage or history of. - Family history:: not pertinent. Screenin:43 [place] Swallow Protocol Exclusion Criteria: Exclusion Criteria Result: Proceed Brief aa9 Cognitive Screen What is your name? Normal, Where are you right now? Normal, What year is it? Normal. Oral Mechanism Examination Oral Mechanism Result: Normal. 3 oz Water Swallow Challenge: Pt able to drink all water without stopping, coughing, choking or throat clearing: Yes Result: PASS Notified: Sameer Richardson ELASTIC ATTACHER CHAINSTITCH-C. 22:40 [facility] ED Fall Risk Assessment (Adult) History of falling in the last 3 months, aa9 including since admission. Abuse screen: Denies threats or abuse. Denies injuries from another. Nutritional screening: No deficits noted. Tuberculosis screening: No symptoms or risk factors identified. Assessment: 20:41 Reassessment: Patient appears in no apparent distress at this time. Patient and/or aa9 family updated on plan of care and expected duration. Pain level reassessed. Patient is alert, oriented x 3, equal unlabored respirations, skin warm/dry/pink. Patient denies pain at this time. 21:22 Reassessment: Patient and/or family updated on plan of care and expected duration. Pain pf1 level reassessed. Patient is alert, oriented x 3, equal unlabored respirations, skin warm/dry/pink. 21:43 Reassessment: Patient appears in no apparent distress at this time. Patient and/or aa9 family updated on plan of care and expected duration. Pain level reassessed. Patient is alert, oriented x 3, equal unlabored respirations, skin warm/dry/pink. Patient denies pain at this time. 22:45 Reassessment: attempted to call report. aa9 23:03 Reassessment: Patient appears in no apparent distress at this time. report provided to usama richard. 23:19 Reassessment: Patient appears in no apparent distress at this time. Patient and/or aa9 family updated on plan of care and expected duration. Pain level reassessed. Patient is alert, oriented x 3, equal unlabored respirations, skin warm/dry/pink. Vital Signs: 19:41 Pulse 101; Resp 19; Temp 98.1(TE); Pulse Ox 98% on R/A; Weight 73.94 kg; Height 5 ft. 3 kd3 in. ; 19:48 BP 144 / 83; kd3 21:22 BP 144 / 82; Pulse 95; Resp 19; Pulse Ox 97% on R/A; pf1 21:46 BP 125 / 81; Pulse 81; Resp 17; Temp 98.5; Pulse Ox 100% on R/A; aa9 19:41 Body Mass Index 28.87 (73.94 kg, 160.02 cm) kd3 ED Course: 19:37 Patient arrived in ED. ja2 19:46 Cayetano Weiss MD is Attending Physician. rt 19:48 Triage completed. kd3 19:48 Arm band placed on left wrist. kd3 20:03 CT Stroke Brain w/o Contrast In Process Unspecified. EDMS 20:05 Stacia Miller, RN is Primary Nurse. aa9 20:15 Note: Inserted saline lock: 20g IV inserted into left antecubital area using aseptic jg10 technique. Blood collected.. 20:[address] In Process Unspecified. EDMS 20:[address] In Process Unspecified. EDMS 20:33 Basic Metabolic Panel Sent. aa9 20:33 CBC with Diff Sent. aa9 20:33 Hepatic Function Sent. aa9 20:33 High Sensitivity Troponin Sent. aa9 20:33 Magnesium Sent. aa9 20:33 Protime (+inr) Sent. aa9 20:33 Ptt, Activated Sent. aa9 20:53 Stroke CXR 1 View In Process Unspecified. EDMS 20:58 Claus Friend MD is Hospitalizing Provider. rt 22:41 Patient has correct armband on for positive identification. Call light in reach. Side aa9 rails up X2. Client placed on continuous cardiac and pulse oximetry monitoring. NIBP monitoring applied. 22:41 No provider procedures requiring assistance completed. Patient admitted, IV remains in aa9 place. Administered Medications: 21:45 Drug: Aspirin PO 325 mg Route: PO; aa9 22:59 Follow up: Response: No adverse reaction aa9 22:21 Drug: Potassium PO Effervescent Tablet 50 mEq Route: PO; aa9 22:59 Follow up: Response: No adverse reaction aa9 Medication: 22:41 VIS not applicable for this client. aa9 Outcome: 20:58 Decision to Hospitalize by Provider. rt 22:41 [facility], with chart. aa9 22:41 Condition: stable 22:41 Instructed on the need for admit. 23:19 Patient left the ED. aa9 Signatures: Dispatcher [employer] EDMS Mauro, Vidya ja2 Regan, Quiana, RN RN kd3 Stacia Miller, RN RN aa9 Kelly Sanchesg10 Cayetano Weiss MD MD rt finley, Pamala RN RN pf1
[2022-11-23 21:01] LABS: Albumin 3.7 g/dL (3.4-5.0); Bilirubin Direct 0.1 mg/dL (0-0.2); Bilirubin Indirect, Calculated 0.2 (0.2-0.8); Bilirubin Total 0.3 mg/dL (0.2-1.0); Magnesium 2.2 mg/dL (1.6-2.4); Troponin High Sensitivity 5.2 pg/mL (<58.9)
[2022-11-23 21:08] LABS: Protime INR 1.03
--- NOTE | 2022-11-23 21:13 | RAD REPORT ---
EXAM DESCRIPTION: RAD - Chest Single View - 11/23/2022 8:51 pm CLINICAL HISTORY: TIA COMPARISON: Chest Single View dated 11/08/2022 FINDINGS: Lines: None. Lungs: No evidence of edema or pneumonia. Pleural: No significant pleural effusions or pneumothorax. Cardiac: The heart size is within normal limits. Mediastinum: Within normal limits. Bones: No acute fractures. Other: None IMPRESSION: No acute cardiopulmonary disease.
[2022-11-23] MEDS ORDERED: ASPIRIN EC 325 MG TABLET PO ONE (21:28)
[2022-11-23] MEDS ORDERED: POTASSIUM 25 MEQ EFFERV TAB ONE (22:13)
--- NOTE | 2022-11-23 22:20 | P.HP ---
Certification for Inpatient Patient admitted to: Observation With expected LOS: <2 Midnights Patient will require the following post-hospital care: None Practitioner: I am a practitioner with admitting privileges, knowledge of patient current condition, hospital course, and medical plan of care. Services: Services provided to patient in accordance with Admission requirements found in Title 42 Section 412.3 of the Code of Federal Regulations Patient History Date of Service: 11/23/22 Reason for admission: TIA History of Present Illness: 62-year-old otherwise healthy female presents the emergency department with chief complaint of intermittent paresthesias of the left lower extremity, left upper extremity and left face lasting for approximately 1 hour/day for the last 3 days, currently resolved. She is evaluated in the emergency department her labs were significant for mild hypokalemia CT head without contrast negative for acute findings CTA of the head and neck negative for occlusive findings chest x- ray unremarkable. ED provider wishes to admit under observation for TIA. Allergies codeine Allergy (Unverified 11/23/22 21:52) Itching/Hives/Rash NSAIDS (Non-Steroidal Anti-Inflamma Allergy (Unverified 11/23/22 21:52) Itching/Hives/Rash - Past Medical/Surgical History -: None -: Tubal ligation Psychosocial/ Personal History: Patient lives at home with her family - Family History Mother -: Heart disease - Social History Smoking Status: Never smoker Alcohol use: No CD- Drugs: No Caffeine use: Yes Place of Residence: Home Review of Systems 10-point ROS is otherwise unremarkable Neurological: Other (Paresthesias), As per HPI Physical Examination - Physical Exam General: Alert, In no apparent distress, Oriented x3 HEENT: Atraumatic, PERRLA, Mucous membr. moist/pink, EOMI, Sclerae nonicteric Neck: Supple, 2+ carotid pulse no bruit, No LAD, Without JVD or thyroid abnormality Respiratory: Clear to auscultation bilaterally, Normal air movement Cardiovascular: Regular rate/rhythm, Normal S1 S2 Gastrointestinal: Normal bowel sounds, No tenderness Musculoskeletal: No tenderness Integumentary: No rashes Neurological: Normal gait, Normal speech, Normal strength at 5/5 x4 extr, Normal tone, Sensation intact, Cranial nerves 3-12 intact, Normal affect, Other (NIH 0) Lymphatics: No axilla or inguinal lymphadenopathy - Studies Laboratory Data (last 24 hrs) 11/23/22 20:20: PT 11.3, INR 1.03, APTT 29.2 11/23/22 20:20: WBC 5.20, Hgb 13.1, Hct 39.0, Plt Count 190 11/23/22 20:20: Sodium 139, Potassium 3.0 L, BUN 10, Creatinine 0.77, Glucose 99, Magnesium 2.2, Total Bilirubin 0.3, AST 19, ALT 23, Alkaline Phosphatase 88 Assessment and Plan - Plan Assessment: Left-sided paresthesias suspect TIA Hypokalemia Plan: Left-sided paresthesias suspect TIA NIH currently 0, CT head without contrast negative for acute findings, CT angio head and neck negative for occlusive findings, given aspirin in ED. She is a non-smoker, will monitor blood pressure closely, obtain echocardiogram, neurology consult, MRI of the brain. Continue aspirin, folic acid, statin. Lipid panel/A1c pending. Hypokalemia Replaced in ED, protocol in place. DVT PPX: Lovenox Code status: Full Discharge Plan: Home Plan to discharge in: 24 Hours - Advance Directives Does patient have a Living Will: No Does patient have a Durable POA for Healthcare: No - Code Status/Comfort Care Code Status Assessed: Yes (Full code) Critical Care: No Time Spent Managing Pts Care (In Minutes): 55
[2022-11-23] MEDS ORDERED: ONDANSETRON 4 MG/2 ML VIAL IV PRN (23:34)
[2022-11-23] MEDS ORDERED: NA CHLORIDE 0.9% 1,000 ML IV SCH (23:34)
[2022-11-24 05:19] LABS: Absolute Lymphocytes (CBC) 1.7 K/uL (0.7-4.9); Lymphocytes % 31.2 % (15.3-44.8); MCV 92.1 fL (80-100); MPV 8.3 fL (7.6-11.3); RBC Red Blood Cell Count 4.12 M/uL (3.86-4.86)
[2022-11-24 05:29] VITALS: BMI 28.8
--- NOTE | 2022-11-24 05:34 | EKG ---
Test Date: 2022-11-23 Test Time: 21:36:24 Health And Wellness Director: ALFIE MEASUREMENT RESULTS: Intervals: Rate: 80 PA: 142 QRSD: 140 QT: 406 QTc: 468 [employer]: P: 18 PA: 142 QRS: 24 T: -6 INTERPRETIVE STATEMENTS: Normal sinus rhythm Right bundle branch block Abnormal ECG Compared to ECG 11/08/2022 21:30:31 No significant changes Electronically Signed On 11-24-22 05:32:50 CDT by Devin Santana
[2022-11-24 05:43] LABS: Potassium 3.7 mEq/L (3.5-5.1); Thyroid Stimulating Hormone 0.673 uIU/mL (0.358-3.740)
--- NOTE | 2022-11-24 07:24 | P.PN ---
Date of Service: 11/24/22 Subjective: ROS: 10 point ROS as noted above, otherwise negative Physical Exam: GEN: Alert, oriented, NAD HEENT: Normal conjunctiva, sclera anicteric CV: Regular rate and rhythm, no edema Pulm: Nonlabored respirations on room air ABD: Soft, nontender, nondistended MSK: No joint tenderness Integumentary: No rashes Neuro: Normal speech, normal affect, Normal strength at 5/5 x4 extr, NIH 0 vitals reviewed Problem List: Left-sided paresthesias suspect TIA Hypokalemia Left-sided paresthesias suspect TIA NIH currently 0 CT head without contrast: negative for acute findings CTA head and neck: negative for occlusive findings MRI brain 11/24: no evidence of acute infarct given aspirin in ED echocardiogram pending neurology consulted Continue aspirin, folic acid, statin Lipid panel/A1c pending Hypokalemia Replaced in ED, protocol in place. VTE: Lovenox Code: Full Dispo: Home 1-2 days
--- NOTE | 2022-11-24 08:00 | RAD REPORT ---
EXAM DESCRIPTION: MRI - Brain Wo Cont - 11/24/2022 7:43 am CLINICAL HISTORY: left sided paresthesia COMPARISON: Ct Stroke Brain Wo Cont dated 11/23/2022 TECHNIQUE: Sagittal T1-weighted images were obtained along with PD/heavily T2-weighted and T2-FLAIR images. Axial DWI and ADC mapping sequences were also obtained along with coronal heavily T2-weighted images were obtained. FINDINGS: No intracranial hemorrhage, mass or acute infarction. There is no edema or shift of midlin e structures. No extra-axial fluid collections. Signal voids are seen as a normal finding in the malathi r intracranial vessels. No significant white matter disease. Arachnoid cyst at the left middle crania l fossa. Mastoid air cells and paranasal sinuses are clear. IMPRESSION: No acute intracranial abnormality. Specifically, no evidence of acute infarct.
[2022-11-24] MEDS ORDERED: FOLIC ACID 1 MG TABLET PO SCH (09:00)
[2022-11-24] MEDS ORDERED: ENOXAPARIN 40 MG/0.4 ML SQ SCH (09:00)
[2022-11-24] MEDS ORDERED: POTASSIUM CL SA 10 MEQ TAB PO ONE (09:00)
[2022-11-24] MEDS ORDERED: ASPIRIN EC 81 MG TAB PO SCH (09:00)
[2022-11-24 09:06] VITALS: BP 128/71; TEMP 97.1
[2022-11-24 09:23] LABS: RBC Red Blood Cell Count 4.34 M/uL (3.86-4.86)
[2022-11-24 10:01] LABS: Folic Acid, (Folate) 17.2 ng/mL (3.1-17.5)
[2022-11-24 10:44] VITALS: O2SAT 95
--- NOTE | 2022-11-24 10:48 | P.DS ---
Admission Date: 11/23/22 Discharge Date: 11/24/22 Disposition: ROUTINE DISCHARGE Discharge Condition: GOOD Reason for Admission: TIA Consultations: Neurology - Dr. Lomeli Brief History of Present Illness: 62yo F, PMH: none Patient presents the emergency department with chief complaint of intermittent paresthesias of the left lower extremity, left upper extremity and left face lasting for approximately 1 hour/day for the last 3 days, currently resolved. She is evaluated in the emergency department her labs were significant for mild hypokalemia CT head without contrast negative for acute findings CTA of the head and neck negative for occlusive findings chest x-ray unremarkable. ED provider wishes to admit under observation for TIA. Hospital Course: Problem List: Left-sided paresthesias suspect TIA Seizure Hypokalemia Patient presented with intermittent paresthesias of the left lower extremity, left upper extremity and left face lasting <1hr for the last 3 days, currently resolved. CT head without contrast negative for acute findings. CTA of the head and neck negative was for occlusive findings. MRI without any acute findings. Dr. Lomeli, Neurology was consulted and although atypical, can't rule out TIA or less likely, but seizure. Recommended treatment as if she had a TIA with aspirin/statin/folic acid. Further lab testing was performed and she was found to have vitamin B12 and vitamin D deficiency, which may play a role in these symptoms. She was deemed stable for discharge. New Prescriptions / Medications: Folic acid Aspirin 81mg Atorvastatin Vitamin B12 Vitamin D Continue other home medications as previously prescribed. Recheck vitamin levels in a few months Follow up: PCP 3-5 days Neurology ~1 month Consideration for EEG if symptoms persist. Dr. Lomeli discussed with patient to keep event diary for further assistance while exact etiology is under investigation / if recurs. Physical Exam: GEN: Alert, oriented, NAD HEENT: Normal conjunctiva, sclera anicteric CV: Regular rate and rhythm, no edema Pulm: Nonlabored respirations on room air ABD: Soft, nontender, nondistended MSK: No joint tenderness Integumentary: No rashes Neuro: Normal speech, normal affect, Normal strength at 5/5 x4 extr, NIH 0 Vital Signs/Physical Exam: Temp Pulse Resp BP Pulse Ox 97.1 F 62 16 128/71 100 11/24/22 08:00 11/24/22 08:00 11/24/22 08:00 11/24/22 08:00 11/24/22 08:00 Laboratory Data at Discharge: WBC 5.40 thou/uL (4.3-10.9) 11/24/22 04:55 Hgb 12.8 g/dL (12.0-15.0) 11/24/22 04:55 Hct 38.0 % (36.0-45.0) 11/24/22 04:55 Plt Count 189 thou/uL (152-406) 11/24/22 04:55 PT 11.3 SECONDS (9.5-12.5) 11/23/22 20:20 INR 1.03 11/23/22 20:20 APTT 29.2 SECONDS (24.3-36.9) 11/23/22 20:20 Sodium 139 mEq/L (136-145) 11/24/22 04:55 Potassium 3.7 mEq/L (3.5-5.1) D 11/24/22 04:55 BUN 8 mg/dL (7-18) 11/24/22 04:55 Creatinine 0.63 mg/dL (0.55-1.02) 11/24/22 04:55 Glucose 91 mg/dL (74-106) 11/24/22 04:55 Magnesium 2.2 mg/dL (1.6-2.4) 11/23/22 20:20 Total Bilirubin 0.3 mg/dL (0.2-1.0) 11/23/22 20:20 AST 19 U/L (15-37) 11/23/22 20:20 ALT 23 U/L (13-56) 11/23/22 20:20 Alkaline Phosphatase 88 U/L (45-117) 11/23/22 20:20 Triglycerides 66 mg/dL (<150) 11/24/22 04:55 Cholesterol 174 mg/dL (<200) 11/24/22 04:55 HDL Cholesterol 60 mg/dL (40-60) 11/24/22 04:55 Cholesterol/HDL Ratio 2.90 11/24/22 04:55 Home Medications: Aspirin [Aspirin EC 81 MG] 81 mg PO DAILY 30 Days #30 tab 11/24/22 Atorvastatin Calcium [Lipitor] 40 mg PO DAILY 30 Days #30 tab 11/24/22 Cholecalciferol (Vitamin D3) [Dialyvite Vitamin D3 Max] 50,000 unit PO EVERY 7TH DAY #6 tab 11/24/22 Cyanocobalamin (Vitamin B-12) [Vitamin B-12] 1,000 mcg PO DAILY 30 Days #30 tab 11/24/22 Folic Acid 1 mg PO DAILY 30 Days #30 tab 11/24/22 New Medications: Aspirin [Aspirin EC 81 MG] 81 mg PO DAILY 30 Days #30 tab Cholecalciferol (Vitamin D3) [Dialyvite Vitamin D3 Max] 50,000 unit PO EVERY 7TH DAY #6 tab Folic Acid 1 mg PO DAILY 30 Days #30 tab Atorvastatin Calcium [Lipitor] 40 mg PO DAILY 30 Days #30 tab Cyanocobalamin (Vitamin B-12) [Vitamin B-12] 1,000 mcg PO DAILY 30 Days #30 tab Physician Discharge Instructions: Patient presented with intermittent paresthesias of the left lower extremity, left upper extremity and left face lasting <1hr for the last 3 days, currently resolved. CT head without contrast negative for acute findings. CTA of the head and neck negative was for occlusive findings. MRI without any acute findings. Dr. Lomeli, Neurology was consulted and although atypical, can't rule out TIA or less likely, but seizure. Recommended treatment as if she had a TIA with aspirin/statin/folic acid. Further lab testing was performed and she was found to have vitamin B12 and vitamin D deficiency, which may play a role in these symptoms. She was deemed stable for discharge. New Prescriptions / Medications: Folic acid Aspirin 81mg Atorvastatin Vitamin B12 Vitamin D Continue other home medications as previously prescribed. Recheck vitamin levels in a few months Follow up: PCP 3-5 days Neurology ~1 month Consideration for EEG if symptoms persist. Dr. Lomeli discussed with patient to keep event diary for further assistance while exact etiology is under investigation / if recurs. Followup: Nino Lomeli MD [ASSOCIATE-ACTIVE - CAN ADMIT] - Jakob Alvarado DO [Primary Care Provider] - Time spent managing pt's care (in minutes): 45
--- NOTE | 2022-11-24 13:21 | CON ---
Reason For Consultation: Consultation called because of possible transient ischemic attack. History Of Present Illness: Ms. Rodriguez is a 62-year-old patient with no significant past medical hist ory, who developed intermittent left lower and upper extremity along with face sensory disturbances a bout 3 days prior to coming to [facility]. She said the symptoms would begin in her foot wi th a tingling feeling that will move to her anterior leg towards the thigh and then from the thigh to her hand and then they involved the face. Symptoms last 20 minutes up to an hour and has recurred a few times about perhaps 3 times prior to coming to the hospital. At [facility], blood work showed mild hypokalemia. Her head CT scan and CT angiogram of her head and neck showed no significa nt abnormalities. She was given aspirin 325 mg daily, potassium was replaced and she was admitted fo r a stroke workup. Her brain MRI which was done earlier today revealed no acute ischemic or hemorrha gic changes. The study showed a left middle cranial fossa arachnoid cyst. Her chest x-ray showed no acute cardiopulmonary disease. Her electrocardiogram was normal sinus rhythm with right bundle-bran ch block. Since her hospitalization, she denies additional episodes of transient sensory disturbances and senso ry disturbances were not accompanied by weakness or alterations of consciousness. Past Medical History: No significant past medical history. Past Surgical History: Tubal ligation. Allergies: CODEINE AND NONSTEROIDAL ANTIINFLAMMATORY MEDICATIONS CAUSED HIVES AND RASH. Family History: Heart disease in mother. Social History: No alcohol, tobacco, or IV drug use, she did in the past. She did use lots of Diet Coke, but has stopped and she was actually on a very restricted diet, she said about a 500 calorie di et for a while and was actually not hydrating well when these episodes occurred, but she had just rec ently restarted to drink maybe 80 ounces, sometimes little bit more water a day and began to come off her low-calorie diet and this was after seeing Dr. Alvarado, her primary care physician and she is com ing back to about a 1000 calories a day diet. Review of Systems: No recent fevers, chills, myalgias, arthralgias, rash, headache, weight change. No psychiatric issue s. No gastrointestinal or genitourinary issues. Physical Examination: Vital Signs: Blood pressure 128/71, pulse 62, respiratory rate 16, temperature 97.1. Note earlier t derrick, blood pressure was down to 98/68 and that was around 4 in this morning and blood pressure 128/7 1 at 8 a.m., oxygen saturation 95% on room air. General: Ms. Rodriguez is lying in her hospital bed. She is in no acute distress. HEENT: She is normocephalic, atraumatic. Sclerae anicteric. Oropharynx is pink and moist. Neck: Supple. Chest: Clear. Heart: Regular. Extremities: Showed no clubbing, cyanosis, or edema. Neurological: She is alert and oriented to person, place, and situation. She follows all commands a ppropriately. Cranial nerves 2 through 12 are intact. Motor in the upper and lower extremities are intact proximally and distally, 5/5 strength. Sensory exam intact in upper and lower extremities pro ximally and distally to light touch and temperature. Coordination intact in upper and lower extremit ies. Reflexes 2+ symmetric upper and lower extremities. Gait good stance, stride, and arm swing. Laboratory Studies: Complete blood count with differential is completely normal. Coagulation panel completely normal. Her vitamin D level is low at 19.2. Vitamin B12 level is slightly low, therapeut ic at 220. She has normal liver function studies, normal kidney function with creatinine being 0.63, BUN 8, hemoglobin A1c of 5.3. Assessment: Ms. Rodriguez is a 62-year-old patient with about 3 episodes of paroxysmal dysesthesia, ting ling in the left foot, leg, thigh, hand, and face. Episodes have been stereotyped. Her differential diagnoses includes transient ischemic attacks and simple partial seizures. She has no focal neurolo gical deficits. Plan: 1.Enteric-coated aspirin 81 mg daily. 2.Folic acid 1 mg daily. 3.For her low vitamin D, vitamin D 50,000 units weekly for a month and 5000 units daily. 4.Vitamin B12 2500 mcg sublingual daily. 5.Since the LDL cholesterol which is done at 101, she should be on a statin. Recommend a high-dose statin and when LDL is less than 70, may decrease to low-dose statin or to supplement to maintain the LDL lower than 70. 6.She was instructed on diet modification and hydration along with activity and rest that are helpfu l to reduce the recurrence of TIAs or strokes. In addition, she may maintain a diary of events, and if need be, after discharge she may have ambulatory video EEG monitoring to characterize these episod es with respect to the possibility of electrographic seizures. She may be discharged home and follow up in Dr. Lomeli's office within a month. EVANS Voice ID: [id number] Report ID: [id number]
--- NOTE | 2022-11-24 13:25 | ECHO ---
HEIGHT: 5 ft 3 in WEIGHT: 163 lb 0 oz DATE OF STUDY: 11/24/[address]: Sameer Bai NP 2-DIMENSIONAL: YES M.MODE: YES DOPPLER: YES COLOR FLOW: YES TDS: NO PORTABLE: NO DEFINITY: NO BUBBLE STUDY: NO DIAGNOSIS: STROKE CARDIAC HISTORY: CATHERIZATION: NO SURGERY: NO PROSTHETIC VALVE: NO PACEMAKER: NO MEASUREMENTS (cm) DIASTOLIC (NORMALS) SYSTOLIC (NORMALS) IVSd 0.9 (0.6-1.2) LA Diam 2.6 (1.9-4.0) LVEF 62% LVIDd 3.8 (3.5-5.7) LVIDs 2.6 (2.0-3.5) %FS 33% LVPWd 1.0 (0.6-1.2) Ao Diam 2.9 (2.0-3.7) 2 DIMENSIONAL ASSESSMENT: RIGHT ATRIUM: NORMAL LEFT ATRIUM: NORMAL RIGHT VENTRICLE: NORMAL LEFT VENTRICLE: NORMAL TRICUSPID VALVE: NORMAL MITRAL VALVE: NORMAL PULMONIC VALVE: NORMAL AORTIC VALVE: NORMAL PERICARDIAL EFFUSION: NONE AORTIC ROOT: NORMAL LEFT VENTRICULAR WALL MOTION: NORMAL. DOPPLER/COLOR FLOW: NORMAL. COMMENTS: NORMAL 2D ECHO WITH DOPPLER NO WALL MOTION ABNORMALITY NO EFFUSION TECHNOLOGIST: BENJAMIN FONTANA
[2022-11-24] MEDS ORDERED: ATORVASTATIN 20 MG TAB PO SCH (21:00)
== END 2022-11-24 12:18 | disposition home or self-care (01) ==
LOC: ER 19:32 → ERHOLD 21:29 → 4TH 22:56
PROVIDERS: ADMIT Hospitalist; ATTEND Hospitalist
DX: R20.8 Other disturbances of skin sensation (principal); E87.6 Hypokalemia; R56.9 Unspecified convulsions; R29.700 NIHSS score 0; E53.8 Deficiency of other specified B group vitamins; E55.9 Vitamin D deficiency, unspecified; Z88.6 Allergy status to analgesic agent
CPT/HCPCS: 93005; 93306; 85025 ×2; 80048 ×2; 36415; 83735; 85610; 85044; 80061; 82947; 80076; 85730; 84443; 83036; 84484; 82746; 82607; 82306; 70496; 70498; 70450; 71045; 70551; 92610; 99285; Q9967; J1650; J7030; G0378 ×4

== ENCOUNTER 2023-11-14 06:11 | Emergency (ER) | payer OTHER ==
[2023-11-14] MEDS ORDERED: HYDROCODONE/APAP 10/325 TAB ONE (06:38)
[2023-11-14] MEDS ORDERED: methocarbamoL 500 MG TAB ONE (06:38)
--- NOTE | 2023-11-14 08:10 | RAD REPORT ---
EXAM DESCRIPTION: CT - [id number] - 11/14/2023 7:03 am CLINICAL HISTORY: PAIN COMPARISON: Neck Angio dated 11/23/2022; Ct Stroke Brain Wo Cont dated 11/23/2022 TECHNIQUE: Axial thin cut noncontrast CT images of the head were obtained. Axial thin cut noncontrast CT images of the cervical spine were obtained. Multiplanar reformatted images were generated and reviewed. All CT scans are performed using dose optimization technique as appropriate and may include automated exposure control or mA/KV adjustment according to patient size. FINDINGS: CT HEAD WITHOUT CONTRAST: Left middle cranial fossa arachnoid cyst again seen. No acute hemorrhage, hydrocephalus or other extr a-axial collection is identified.No areas of brain edema or midline shift. The paranasal sinuses and mastoids are clear.The calvarium is intact. CT CERVICAL SPINE WITHOUT CONTRAST: No fracture or subluxation. Multilevel cervical spine spondylitic changes with gentle reversal of bharati dosis again seen. Findings contribute to variable degrees of neural foraminal narrowing, at least mod erate bilaterally at C6-7, and to lesser degree at C5-6. No bony central canal stenosis. No preverteb ral soft tissues swelling is identified. IMPRESSION: No acute traumatic intracranial or cervical spine findings. Stable findings as above.
--- NOTE | 2023-11-14 08:20 | ER ---
Nurse's Notes [facility] Name: Jenny Rodriguez Age: 63 yrs Sex: Female : 1960 Arrival Date: 11/14/2023 Time: 06:11 Bed 6 Private MD: Diagnosis: Headache, neck pain Presentation: 11/13 06:15 Chief complaint: Patient states: neck pain of 8,onset May 2023, S/P fall, worse pf1 tonight at 0000 with a stabbing pain to that radiates to left side of neck. Patient stated was going to rehab for physical therapy and has scheduled an appointment with orthopedic on this Sunday. 06:15 Coronavirus screen: Client denies travel out of the [place] in the last 14 days. At this pf1 time, the client does not indicate any symptoms associated with coronavirus-19. Ebola Screen: Patient negative for fever greater than or equal to 101.5 degrees Fahrenheit, and additional compatible Ebola Virus Disease symptoms. Acute neurological deficit: none identified. Initial Sepsis Screen: Does the patient meet any 2 criteria? No. Patient's initial sepsis screen is negative. Does the patient have a suspected source of infection? No. Patient's initial sepsis screen is negative. Risk Assessment: Do you want to hurt yourself or someone else? Patient reports no desire to harm self or others. Onset of symptoms. Onset of symptoms was May 30, 2023. 06:15 Method Of Arrival: Ambulatory pf1 06:15 Acuity: SHAYLA 3 pf1 Triage Assessment: 06:15 General: Appears in no apparent distress. comfortable, well groomed, well developed, pf1 Behavior is calm, cooperative, appropriate for age, quiet. 06:15 Pain: Complains of pain in neck Pain currently is 8 out of 10 on a pain scale. pf1 Musculoskeletal: Reports pain in neck pain that radiates to occipital region. Historical: - Allergies: 06:34 Codeine; pf1 06:34 Ibuprofen; pf1 06:34 NSAIDS (Non-Steroidal Anti-Inflammatory Drug); pf1 06:34 UNKNOWN STEROID; pf1 - PMHx: 06:34 Hypercholesterolemia; pf1 - PSHx: 06:34 Ligation of fallopian tube; Tonsillectomy; pf1 06:35 feet; pf1 - Immunization history:: Adult Immunizations up to date, 3 doses of Moderna Last tetanus immunization: < 5 years ago Flu vaccine is up to date. - Infectious Disease History:: Denies. - Social history:: Smoking status: Patient denies any tobacco usage or history of. Patient uses alcohol, occasionally. Patient/guardian denies using street drugs. - Family history:: not pertinent. Screenin:36 [facility] ED Fall Risk Assessment (Adult) History of falling in the last 3 months, jj7 including since admission No falls in past 3 months (0 pts). [facility] ED Fall Risk Assessment (Adult) Confusion or Disorientation No (0 pts) Intoxicated or Sedated No (0 pts) Impaired Gait No (0 pts) Mobility Assist Device Used No (0 pt) Altered Elimination No (0 pt) Score/Fall Risk Level 0 - 2 = Low Risk Oriented to surroundings, Maintained a safe environment, Educated pt \T\ family on fall prevention, incl call for assistance when getting out of bed. Abuse screen: Denies threats or abuse. Nutritional screening: No deficits noted. Tuberculosis screening: No symptoms or risk factors identified. Assessment: 06:36 General: Appears in no apparent distress. comfortable, Behavior is calm, cooperative, jj7 appropriate for age. Pain: Complains of pain in left posterior aspect of neck and left lateral aspect of neck. Neuro: Level of Consciousness is awake, alert, obeys commands, Oriented to person, place, time, situation, Appropriate for age Chairman & Ceo are equal bilaterally Moves all extremities. Full function Gait is steady, Speech is normal. Musculoskeletal: Reports pain in left posterior aspect of neck and left lateral aspect of neck. 07:31 Reassessment: Patient appears in no apparent distress at this time. No changes from ko1 previously documented assessment. Patient and/or family updated on plan of care and expected duration. Pain level reassessed. Patient is alert, oriented x 3, equal unlabored respirations, skin warm/dry/pink. Vital Signs: 06:15 BP 154 / 85; Pulse 93; Resp 18; Temp 98.1; Pulse Ox 99% on R/A; Weight 71.21 kg; Height pf1 5 ft. 3 in. ; Pain 8/10; 07:13 BP 133 / 74; Pulse 74; Resp 18 S; Pulse Ox 97% on R/A; kc6 08:18 BP 128 / 72; Pulse 70; Resp 16; Pulse Ox 99% ; ko1 06:15 Body Mass Index 27.81 (71.21 kg, 160.02 cm) pf1 06:15 Pain Scale: Adult pf1 [place] Coma Score: 06:39 Eye Response: spontaneous(4). Motor Response: obeys commands(6). Verbal Response: sp4 oriented(5). Total: 15. ED Course: 06:13 Patient arrived in ED. jj6 06:16 Joe Gomez MD is Attending Physician. sp4 06:26 Umer Medina, RN is Primary Nurse. rv 06:33 Triage completed. pf1 06:36 Patient has correct armband on for positive identification. Bed in low position. Call jj7 light in reach. Provided Education on: USE OF CALL YAN. 06:36 No provider procedures requiring assistance completed. jj7 07:00 Arm band placed on. kc6 07:00 Report received from ZIGGY Mckeon. kc6 07:05 CT Head C Spine In Process Unspecified. EDMS 07:10 Attending Physician role handed off by Joe Gomez MD sp3 07:10 Meron Pratt MD is Attending Physician. sp3 08:19 Assisted to bathroom. ko1 08:20 Patient did not have IV access during this emergency room visit. ko1 Administered Medications: 06:44 Not Given (Patient Refused): norco10 mg-325 mg 2 tabs PO once jj7 06:44 Drug: Methocarbamol PO 1500 mg PO once Route: PO; jj7 07:15 Follow up: Response: No adverse reaction ko1 Medication: 06:36 VIS not applicable for this client. jj7 Outcome: 08:19 Discharge ordered by . sp3 08:21 Discharged to home ambulatory, ko1 08:21 Condition: stable 08:21 Discharge instructions given to patient, Instructed on discharge instructions, follow up and referral plans. medication usage, Demonstrated understanding of instructions, follow-up care, medications, Prescriptions given X 2, 08:25 Patient left the ED. ko1 Signatures: Dispatcher [employer] EDIL Umer Medina, ZIGGY RN rv Meron Pratt MD MD sp3 Farzana Alexis jj6 Heidy Olson RN RN kc6 Daniela Hernandez RN RN ko1 Emile Eubanks, RN RN jj7 Rosa Roach, RN RN pf1 Joe Gomez MD MD sp4
--- NOTE | 2023-11-14 08:20 | EDPHYS ---
Physician Documentation [facility] Name: Jenny Rodriguez Age: 63 yrs Sex: Female : 1960 Arrival Date: 11/14/2023 Time: 06:11 Bed 6 Private MD: ED Physician Meron Pratt HPI: 11/13 06:16 This 63 yrs old Female presents to ER via Unassigned with complaints of Neck sp4 and Upper Back Pain. 06:39 63-year-old female presents with worsening neck and upper headache. Patient states she sp4 had an accident in May 2023 where she fell backwards causing injury to the posterior head and neck. This morning her pain has intensified prompting arrival to the emergency room. Patient denied weakness. . Historical: - Allergies: 06:34 Codeine; pf1 06:34 Ibuprofen; pf1 06:34 NSAIDS (Non-Steroidal Anti-Inflammatory Drug); pf1 06:34 UNKNOWN STEROID; pf1 - PMHx: 06:34 Hypercholesterolemia; pf1 - PSHx: 06:34 Ligation of fallopian tube; Tonsillectomy; pf1 06:35 feet; pf1 - Immunization history:: Adult Immunizations up to date, 3 doses of Moderna Last tetanus immunization: < 5 years ago Flu vaccine is up to date. - Infectious Disease History:: Denies. - Social history:: Smoking status: Patient denies any tobacco usage or history of. Patient uses alcohol, occasionally. Patient/guardian denies using street drugs. - Family history:: not pertinent. ROS: 06:39 Constitutional: Negative for fever, chills, and weight loss, positive for neck pain and sp4 headache 06:39 All other systems are negative, Exam: 06:39 Constitutional: This is a well developed, well nourished patient who is awake, alert, sp4 and in no acute distress. Head/Face: Normocephalic, atraumatic. Eyes: Pupils equal round and reactive to light, extra-ocular motions intact. Lids and lashes normal. Conjunctiva and sclera are not injected. Cornea within normal limits. Periorbital areas with no swelling, redness, or edema. ENT: Nares patent. No nasal discharge, no septal abnormalities noted. Tympanic membranes are normal and external auditory canals are clear. Oropharynx with no redness, swelling, or masses, exudates, or evidence of obstruction, uvula midline. Mucous membranes moist. Neck: Trachea midline, no thyromegaly or masses palpated, and no cervical lymphadenopathy. Supple, full range of motion without nuchal rigidity, or vertebral point tenderness. Chest/axilla: Normal chest wall appearance and motion. Nontender with no deformity. No lesions are appreciated. Cardiovascular: Regular rate and rhythm with a normal S1 and S2. No gallops, murmurs, or rubs. Normal PMI, no JVD. No pulse deficits. Respiratory: Lungs have equal breath sounds bilaterally, clear to auscultation and percussion. No rales, rhonchi or wheezes noted. No increased work of breathing, no retractions or nasal flaring. Abdomen/GI: Soft, with normal bowel sounds. No distension or tympany. No guarding or rebound. No evidence of tenderness throughout. Back: No spinal tenderness. No costovertebral tenderness. Skin: Warm, dry with normal turgor. Normal color with no rashes, no lesions, and no evidence of cellulitis. MS/ Extremity: Pulses equal, no cyanosis. Neurovascular intact. Full, normal range of motion. Neuro: Awake and alert, GCS 15, oriented to person, place, time, and situation. Cranial nerves II-XII grossly intact. Motor strength 5/5 in all extremities. Sensory grossly intact. Psych: Awake, alert, with orientation to person, place and time. Behavior, mood, and affect are within normal limits Vital Signs: 06:15 BP 154 / 85; Pulse 93; Resp 18; Temp 98.1; Pulse Ox 99% on R/A; Weight 71.21 kg; Height pf1 5 ft. 3 in. ; Pain 8/10; 07:13 BP 133 / 74; Pulse 74; Resp 18 S; Pulse Ox 97% on R/A; kc6 08:18 BP 128 / 72; Pulse 70; Resp 16; Pulse Ox 99% ; ko1 06:15 Body Mass Index 27.81 (71.21 kg, 160.02 cm) pf1 06:15 Pain Scale: Adult pf1 [place] Coma Score: 06:39 Eye Response: spontaneous(4). Motor Response: obeys commands(6). Verbal Response: sp4 oriented(5). Total: 15. MDM: 06:20 Patient medically screened. sp4 07:12 Differential diagnosis: arthritis, C-Spine Fracture Cervical Raiculopathy Cervical sp4 Spondylosis cervical strain. Data reviewed: vital signs, nurses notes, old medical records, radiologic studies, CT scan. Transition of care: After a detail discussion of the patient's case, care is transferred to Meron Pratt MD. 07:26 ED course: Patient taken over by me by nighttime physician at 7 AM. Patient is a sp3 64-year-old female with hyperlipidemia with headache now getting better. Patient states the muscle laxer has helped significantly. CT scan of the head and C-spine are pending and if negative we will safely discharge patient home.. 08:19 ED course: CT negative and patient is improved. We will discharge her on tramadol and sp3 Flexeril and she has an appointment with orthopedist for this Sunday 2 days from now.. 11/13 06:26 Order name: CT Head C Spine; Complete Time: 08:14 sp4 Administered Medications: 06:44 Not Given (Patient Refused): norco10 mg-325 mg 2 tabs PO once jj7 06:44 Drug: Methocarbamol PO 1500 mg PO once Route: PO; jj7 07:15 Follow up: Response: No adverse reaction ko1 Disposition Summary: 11/14/23 08:19 Discharge Ordered Notes: Location: Home sp3 Condition: Stable sp3 Diagnosis - Headache, neck pain sp3 Followup: sp3 - With: Private Physician - When: Upon discharge from the Emergency Department - Reason: Continuance of care Discharge Instructions: - Discharge Summary Sheet sp3 - General Headache Without Cause sp3 Forms: - Medication Reconciliation Form sp3 - Antibiotic Education sp3 - Prescription Opioid Use sp3 - Patient Portal Instructions sp3 - Leadership Thank You Letter sp3 Prescriptions: - Tramadol 50 mg Oral Tablet - take 1 tablet ORAL route every 8 hours as needed; 12 tablet; Refills: 0, sp3 Product Selection Permitted - Cyclobenzaprine 5 mg Oral Tablet - take 1 tablet ORAL route 3 times per day As needed; 15 tablet; Refills: 0, sp3 Product Selection Permitted Signatures: Dispatcher [employer] EDMS Meron Pratt MD MD sp3 Emile Eubanks RN RN jj7 Rosa Roach RN RN pf1 Joe Gomez MD MD sp4 Daniela Hernandez RN ko1
[2023-11-14 09:08] VITALS: BP 128/72; TEMP 98.1; O2SAT 99
== END 2023-11-14 08:25 | disposition home or self-care (01) ==
LOC: ER 06:11
DX: R51.9 Headache, unspecified (principal); M54.2 Cervicalgia; Z88.5 Allergy status to narcotic agent; Z88.6 Allergy status to analgesic agent; Z88.8 Allergy status to other drugs, medicaments and biological substances
CPT/HCPCS: 70450; 72125; 99283

== ENCOUNTER 2024-09-05 09:18 | Emergency (ER) | payer OTHER ==
[2024-09-05 10:55] LABS: Absolute Basophils 0.1 K/uL (0-0.5); Absolute Eosinophils 0.1 K/uL (0-0.5); Absolute Monocytes 0.3 K/uL (0.1-1.3); Absolute Neutrophil 3.3 K/uL (1.8-8.0); Basophils % 1.1 % (0-1.3); Eosinophils % 1.3 % (0-4.4); Hematocrit 43.7 % (36.0-45.0); Hemoglobin 14.9 g/dL (12.0-15.0); Lymphocytes % 20.9 % (15.3-44.8); MCH 31.5 pg (27.0-35.0); MCV 92.6 fL (80-100); MPV 8.6 fL (7.6-11.3); Monocytes % 5.5 % (3.3-12.3); Neutrophils % 71.2 % (41.7-73.7); Nucleated Red Blood Cells % 0.1 % (0-0); Platelets 227 thou/uL (152-406); RBC Red Blood Cell Count 4.72 M/uL (3.86-4.86); Red Cell Distribution Width 13.4 % (12.1-15.2)
--- NOTE | 2024-09-05 11:03 | RAD REPORT ---
EXAM: CT brain without contrast HISTORY: STROKE ALERT COMPARISON: 11/14/2023 TECHNIQUE: Multiple contiguous axial images were obtained and a CT of the brain without contrast. Sag ittal and coronal reformats were performed. One or more of the following dose reduction techniques were used: Automated exposure control, adjust ment of the mA and/or kV according to patient size, and/or iterative reconstruction. FINDINGS: No evidence of hydrocephalus, intracranial hemorrhage, or extra-axial fluid collection. The brain is normal in morphology. CSF collection in the left temporal fossa presumably benign arach noid cyst. No evidence of midline shift or areas of brain edema. The calvarium is intact. The visualized paranasal sinuses and mastoid air cells are essentially clear . IMPRESSION: No evidence of acute intracranial abnormality.
--- NOTE | 2024-09-05 11:05 | RAD REPORT ---
EXAMINATION: CTA HEAD CLINICAL INDICATION: Aphasia;TIA TECHNIQUE: Axial CT images were obtained through the head after intravenous contrast utilizing angiog raph protocol with 3D post-processing (maximum intensity projection images, volume rendered images and/or shaded surface rendered images). One or more of the following dose reduction technique s were used: Automated exposure control, adjustment of the mA and/or kV according to patient size, and/or iterative reconstruction. Unless otherwise specified, incidental findings do not require dedic ated imaging follow-up. COMPARISON: No prior exam. FINDINGS: ICA: The petrous, cavernous, and supraclinoid segments of the bilateral internal carotid arteries are normal. The ophthalmic artery origins are visualized and normal. The posterior communicating arteries are patent. MIGUEL: Anterior cerebral arteries are normal bilaterally. The anterior communicating artery is patent. MCA: Middle cerebral arteries are normal bilaterally. [employer] LAMP DEVELOPER: Posterior cerebral arteries are normal bilaterally. Vertebrobasilar: The vertebral arteries are patent. The basilar artery is normal in appearance. 3D images confirm these findings. IMPRESSION: No significant flow abnormality is identified.
--- NOTE | 2024-09-05 11:13 | RAD REPORT ---
EXAMINATION: CTA NECK CLINICAL INDICATION: PAIN TECHNIQUE: Axial CT images were obtained from the aortic arch to the skull base after intravenous con trast utilizing angiographic protocol with 3D post-processing (maximum intensity projection images, volume rendered images and/or shaded surface rendered images). One or more of the following dose redu ction techniques were used: Automated exposure control, adjustment of the mA and/or kV according to patient size, and/or iterative reconstruction. Unless otherwise specified, incidental findings do not require dedicated imaging follow-up. COMPARISON: 11/23/2022 FINDINGS: AORTA: The imaged aortic arch is normal. CCA: The common carotid arteries are patent and normal in caliber. ICA/ECA: Small soft plaque left carotid bulb. No significant carotid stenosis. VERTEBRAL: The cervical vertebral arteries are patent. The vertebral arteries are codominant. SOFT TISSUE: No significant neck soft tissue abnormalities. The visualized lung apices are clear. 3D images confirm these findings. IMPRESSION: No significant flow abnormality of the neck vessels is identified. Mild soft plaque left carotid bulb . NASCET criteria used. Mild 0-49% stenosis Moderate 50-69% stenosis Severe 70-99% stenosis
[2024-09-05 11:22] LABS: Albumin 4.1 g/dL (3.4-5.0); Albumin/Globulin Ratio 1.1 (1.1-1.8); Anion Gap 6.7 mEq/L (5.0-15.0); Bilirubin Direct 0.2 mg/dL (0-0.2); Bilirubin Indirect, Calculated 0.4 mg/dL (0.2-0.8); Bilirubin Total 0.6 mg/dL (0.2-1.0); Globulin 3.8 g/dL (2.3-3.5); Magnesium 2.3 mg/dL (1.6-2.4); PT Prothrombin Time 11.4 SECONDS (9.4-12.5); Potassium 3.7 mEq/L (3.5-5.1); Protein, Total 7.9 g/dL (6.4-8.2); Protime INR 1.09
[2024-09-05 11:36] LABS: Specific Gravity > 1.030 (1.005-1.030); Sqamous Epithelial <5 /HPF (None Seen); Urine Bacteria None Seen /HPF (<20); Urine Bilirubin NEGATIVE (Negative); Urine Blood Negative (Negative); Urine Clarity Clear (Clear); Urine Color Colorless (Yellow); Urine Culture Reflex Order NOT NEEDED; Urine Glucose NEGATIVE (Negative); Urine Ketones NEGATIVE (Negative); Urine Microscopic Reflex YN ORDER UMIC; Urine Nitrite NEGATIVE (Negative); Urine Protein NEGATIVE (Negative); Urine RBC None Seen /HPF (None Seen); Urine Urobilinogen Normal (Normal); Urine WBC <5 /HPF (<5); Urine pH 7.5 (5.0-7.0)
--- NOTE | 2024-09-05 12:03 | RAD REPORT ---
EXAMINATION: ONE VIEW CHEST XR CLINICAL INDICATION: COUGH TECHNIQUE: Frontal chest projection is submitted. Examination is limited by patient positioning and t echnique. COMPARISON: 11/23/2022 FINDINGS: Nonspecific peribronchial thickening without focal consolidation could represent a viral or inflammat ory process. The heart is normal in size. No displaced fractures identified. IMPRESSION: Interstitial pattern bilaterally could be related to viral infection or reactive airway disease.
--- NOTE | 2024-09-05 12:56 | EDPHYS ---
Physician Documentation [facility] Name: Jenny Rodriguez Age: 64 yrs Sex: Female : 1960 Arrival Date: 09/05/2024 Time: 09:18 Bed 10 Private MD: ED Physician Andrei Grey HPI: 09/05 12:37 This 64 yrs old Female presents to ER via Ambulatory with complaints of Facial chris Droop. 12:37 The patient presents to the emergency department with LEFT LOWER LIP TWITCHING. Onset: chris The symptoms/episode began/occurred 2 day(s) ago. Context: occurred at home, occurred while the patient was USUAL ACTIVITY. Historical: - Allergies: 10:03 Codeine; ss 10:03 Ibuprofen; ss 10:03 NSAIDS (Non-Steroidal Anti-Inflammatory Drug); ss 10:03 UNKNOWN STEROID; ss - PMHx: 10:03 Hypercholesterolemia; ss - PSHx: 10:03 feet; Ligation of fallopian tube; Tonsillectomy; ss ROS: 12:52 Constitutional: Negative for fever, chills, and weight loss, Eyes: Negative for injury, chris pain, redness, and discharge, ENT: Negative for injury, pain, and discharge, Neck: Negative for injury, pain, and swelling, Cardiovascular: Negative for chest pain, palpitations, and edema, Respiratory: Negative for shortness of breath, cough, wheezing, and pleuritic chest pain, Abdomen/GI: Negative for abdominal pain, nausea, vomiting, diarrhea, and constipation, Back: Negative for injury and pain, : Negative for injury, bleeding, discharge, and swelling, MS/Extremity: Negative for injury and deformity, Skin: Negative for injury, rash, and discoloration, Psych: Negative for depression, anxiety, suicide ideation, homicidal ideation, and hallucinations, Allergy/Immunology: Negative for hives, rash, and allergies, Endocrine: Negative for neck swelling, polydipsia, polyuria, polyphagia, and marked weight changes, Hematologic/Lymphatic: Negative for swollen nodes, abnormal bleeding, and unusual bruising, 12:52 Neuro: Positive for LEFT LOWER LIP TWITCHING, Exam: 12:52 Constitutional: This is a well developed, well nourished patient who is awake, alert, chris and in no acute distress. Head/Face: Normocephalic, atraumatic. Eyes: Pupils equal round and reactive to light, extra-ocular motions intact. Lids and lashes normal. Conjunctiva and sclera are non-icteric and not injected. Cornea within normal limits. Periorbital areas with no swelling, redness, or edema. ENT: Nares patent. No nasal discharge, no septal abnormalities noted. Tympanic membranes are normal and external auditory canals are clear. Oropharynx with no redness, swelling, or masses, exudates, or evidence of obstruction, uvula midline. Mucous membranes moist. Neck: Trachea midline, no thyromegaly or masses palpated, and no cervical lymphadenopathy. Supple, full range of motion without nuchal rigidity, or vertebral point tenderness. No Meningismus. Chest/axilla: Normal chest wall appearance and motion. Nontender with no deformity. No lesions are appreciated. Cardiovascular: Regular rate and rhythm with a normal S1 and S2. No gallops, murmurs, or rubs. Normal PMI, no JVD. No pulse deficits. Respiratory: Lungs have equal breath sounds bilaterally, clear to auscultation and percussion. No rales, rhonchi or wheezes noted. No increased work of breathing, no retractions or nasal flaring. Abdomen/GI: Soft, non-tender, with normal bowel sounds. No distension or tympany. No guarding or rebound. No evidence of tenderness throughout. Back: No spinal tenderness. No costovertebral tenderness. Full range of motion. Female : Normal external genitalia. Skin: Warm, dry with normal turgor. Normal color with no rashes, no lesions, and no evidence of cellulitis. MS/ Extremity: Pulses equal, no cyanosis. Neurovascular intact. Full, normal range of motion., bilateral aka Neuro: Awake and alert, GCS 15, oriented to person, place, time, and situation. Cranial nerves II-XII grossly intact. Motor strength 5/5 in all extremities. Sensory grossly intact. Cerebellar exam normal. Normal gait. Psych: Awake, alert, with orientation to person, place and time. Behavior, mood, and affect are within normal limits. 12:52 ECG was reviewed by the Attending Physician. Vital Signs: 09:49 BP 141 / 94; Pulse 87; Resp 16; Temp 98.1(O); Pulse Ox 100% on R/A; Weight 75.3 kg; ss Height 5 ft. 2 in. ; Pain 0/10; 11:29 BP 144 / 95; Pulse 89; Resp 17; Pulse Ox 95% ; Pain 0/10; jl7 09:49 Body Mass Index 30.36 (75.30 kg, 157.48 cm) ss 09:49 Pain Scale: Adult ss 11:29 Pain Scale: Adult jl7 MDM: 09:29 Medical Screening Exam initiated [facility] 12:53 Data reviewed: vital signs, nurses notes, lab test result(s), EKG, radiologic studies, chris plain films. Consideration of Admission/Observation Escalation of care including admission/observation considered. I considered the following discharge prescriptions or medication management in the emergency department Medications were administered in the Emergency Department. See MAR. Independent interpretation of the following test(s) in the Emergency Department EKG: See my EKG interpretation above. Test considered but Not performed: MRI: NO MRI BRAIN. Historians other than the Patient: PT WELL INFORMED. Care significantly affected by the following chronic conditions: HIGH CHLESTEREOL. Counseling: I had a detailed discussion with the patient and/or guardian regarding the historical points, exam findings, and any diagnostic results supporting the discharge/admit diagnosis, lab results, radiology results, the need for outpatient follow up, for definitive care, a family practitioner, a neurologist. 09/05 09:31 Order name: Basic Metabolic Panel; Complete Time: 12:22 [facility] 09/05 09:31 Order name: CBC with Diff; Complete Time: 12:22 [facility] 09/05 09:31 Order name: LFT's; Complete Time: 12:22 [facility] 09/05 09:31 Order name: Magnesium; Complete Time: 12:22 [facility] 09/05 09:31 Order name: NT PRO-BNP; Complete Time: 12:22 [facility] 09/05 09:31 Order name: PT-INR; Complete Time: 12:22 [facility] 09/05 09:31 Order name: Troponin HS; Complete Time: 12:22 [facility] 09/05 09:31 Order name: Urinalysis w/ reflexes; Complete Time: 12:22 [facility] 09/05 09:31 Order name: XRAY Chest (1 view); Complete Time: 12:22 [facility] 09/05 09:31 Order name: CT Neck Angio; Complete Time: 12:22 [facility] 09/05 09:31 Order name: CT Head Angio; Complete Time: 12:22 [facility] 09/05 09:51 Order name: Head Brain Wo Cont; Complete Time: 12:22 [facility] 09/05 09:31 Order name: EKG - Nurse/Tech; Complete Time: 10:39 [facility] 09/05 09:31 Order name: IV Saline Lock; Complete Time: 10:39 [facility] 09/05 09:31 Order name: Labs collected and sent; Complete Time: 11:00 [facility] 09/05 09:31 Order name: O2 Per Protocol; Complete Time: 11:00 [facility] 09/05 09:31 Order name: O2 Sat Monitoring; Complete Time: 11:00 [facility] EC:52 Rate is 67 beats/min. Rhythm is regular. QRS [place] is Normal. [place] interval is normal. QRS chris interval is normal. QT interval is normal. No Q waves. T waves are Normal. No ST changes noted. Clinical impression: NSR w/ Non-specific ST/T Changes and No evidence of ischemia. Interpreted by me. Reviewed by me. Administered Medications: No medications were administered Disposition Summary: 09/05/24 12:56 Discharge Ordered Notes: Location: Home chris Problem: new chris Symptoms: have improved chris Condition: Stable chris Diagnosis - Weakness - TWITCHING chris Followup: chris - With: Private Physician - When: 2 - 3 days - Reason: Recheck today's complaints, Continuance of care, Re-evaluation by your physician Followup: chris - With: Nino Lomeil MD - When: 2 - 3 days - Reason: Recheck today's complaints, Re-evaluation by your physician Discharge Instructions: - Discharge Summary Sheet chris - Weakness chris - Fatigue chris - Weakness, [id number] chris - Aspirin and Your Heart chris - Deconditioning chris Forms: - Medication Reconciliation Form chris - Antibiotic Education chris - Prescription Opioid Use chris - Patient Portal Instructions chris - Leadership Thank You Letter [facility] Prescriptions: - Cipro 250 mg Oral tablet - take 1 tablet ORAL route every 12 hours; 10 tablet; Refills: 0, Product chris Selection Permitted - Folic Acid 1 mg Oral Tablet - take 1 tablet ORAL route once daily; 30 tablet; Refills: 0, Product Selection chris Permitted Signatures: Dispatcher [employer] Andrei Moody MD MD cha Blanchard, Shelby, RN RN ss Corrections: (The following items were deleted from the chart) 09:32 09:31 BASIC METABOLIC PANEL+C.LAB.BRZ ordered. EDMS EDMS 09:32 09:31 CBC+H.LAB.BRZ ordered. EDMS EDMS 09:32 09:31 HEPATIC FUNCTION+C.LAB.BRZ ordered. EDMS EDMS 09:32 09:31 MAGNESIUM+C.LAB.BRZ ordered. EDMS EDMS 09:32 09:31 PROBNP+C.LAB.BRZ ordered. EDMS EDMS 09:32 09:31 PROTIME (+INR)+COAG.LAB.BRZ ordered. EDMS EDMS 09:32 09:31 Troponin High Sensitivity+C.LAB.BRZ ordered. EDMS EDMS 09:32 09:31 Urinalysis+U.LAB.BRZ ordered. EDMS EDMS 09:32 09:32 Chest Single View+RAD.RAD.BRZ ordered. EDMS EDMS 09:32 09:32 CT-STROKE BRAIN W/O CONTRAST+CT.RAD.BRZ ordered. EDMS EDMS 09:32 09:32 Neck Angio+CT.RAD.BRZ ordered. EDMS EDMS 09:32 09:32 Head Angio+CT.RAD.BRZ ordered. EDMS EDMS
--- NOTE | 2024-09-05 12:56 | ER ---
Nurse's Notes [facility] Name: Jenny Rodrigeuz Age: 64 yrs Sex: Female : 1960 Arrival Date: 09/05/2024 Time: 09:18 Bed 10 Private MD: Diagnosis: Weakness-TWITCHING Presentation: 09/05 09:49 Chief complaint: Patient states: Twitch to L lower lip that pt noticed yesterday ss morning at 0800. Pt reports she was doing facial exercises today and it did the twitch again. Coronavirus screen: Client denies travel out of the [place] in the last 14 days. Ebola Screen: Patient denies exposure to infectious person. Patient denies travel to an Ebola-affected area in the 21 days before illness onset. No acute neurological deficit is noted. Pre-hospital glucose is not applicable to this patient. Initial Sepsis Screen: Does the patient meet any 2 criteria? No. Patient's initial sepsis screen is negative. Does the patient have a suspected source of infection? No. Patient's initial sepsis screen is negative. Risk Assessment: Do you want to hurt yourself or someone else? Patient reports no desire to harm self or others. Onset of symptoms was September 04, 2024 at 08:00. 09:49 Method Of Arrival: Ambulatory ss 09:49 Acuity: SHAYLA 3 ss Stroke Activation: Symptom onset > 6 hours Physician: ED Attending; Name: ; Notified At: ; Arrived At: Physician: Mid-Level Provider; Name: ; Notified At: ; Arrived At: Physician: [not used]; Name: ; Notified At: ; Arrived At: Physician: [not used]; Name: ; Notified At: ; Arrived At: Physician: [not used]; Name: ; Notified At: ; Arrived At: Historical: - Allergies: 10:03 Codeine; ss 10:03 Ibuprofen; ss 10:03 NSAIDS (Non-Steroidal Anti-Inflammatory Drug); ss 10:03 UNKNOWN STEROID; ss - PMHx: 10:03 Hypercholesterolemia; ss - PSHx: 10:03 feet; Ligation of fallopian tube; Tonsillectomy; Vital Signs: 09:49 BP 141 / 94; Pulse 87; Resp 16; Temp 98.1(O); Pulse Ox 100% on R/A; Weight 75.3 kg; ss Height 5 ft. 2 in. ; Pain 0/10; 11:29 BP 144 / 95; Pulse 89; Resp 17; Pulse Ox 95% ; Pain 0/10; jl7 09:49 Body Mass Index 30.36 (75.30 kg, 157.48 cm) ss 09:49 Pain Scale: Adult ss 11:29 Pain Scale: Adult jl7 ED Course: 09:23 Patient arrived in ED. cj3 09:29 Andrei Grey MD is Attending Physician. chris 10:03 Triage completed. ss 10:03 Arm band placed on right wrist. ss 10:34 Note: ATTEMPTED TO CALL FOR PT IN [facility], UNABLE TO LOCATE. md2 10:39 Initial lab(s) drawn, by me, sent to lab. EKG done, by ED staff. Inserted saline lock: kb4 20 gauge in left antecubital area, using aseptic technique. Blood collected. Flushed with 10 mL NS. 10:46 CT Neck Angio In Process Unspecified. EDMS 10:46 CT Head Angio In Process Unspecified. EDMS 10:46 Head Brain Wo Cont In Process Unspecified. EDMS 10:59 Haydee Landa, RN is Primary Nurse. [facility] 11:29 XRAY Chest (1 view) In Process Unspecified. EDMS 12:58 Nino Lomeli MD is Referral Physician. chris Administered Medications: No medications were administered Outcome: 12:56 Discharge ordered by . [facility] 13:19 Patient left the ED. Signatures: Dispatcher [employer] EDMS Andrei Grey MD MD cha Blanchard, Shelby, RN RN Estefani Cantrell RN RN Haydee Landa, ZIGGY TRINH [facility] Suzy Vanessa md2 Kaitlyn Curiel4 Melody Eubanks 3
[2024-09-06 04:44] VITALS: TEMP 98.1
[2024-09-06 04:45] VITALS: BP 144/95; O2SAT 95
--- NOTE | 2024-09-08 12:12 | EKG ---
Test Date: 2024-09-05 Test Time: 10:35:18 Academic Manager: BELINDA MEASUREMENT RESULTS: Intervals: Rate: 67 CA: 128 QRSD: 88 QT: 400 QTc: 422 Sargents: P: 11 CA: 128 QRS: 56 T: 31 INTERPRETIVE STATEMENTS: Normal sinus rhythm Nonspecific T wave abnormality Abnormal ECG Compared to ECG 11/23/2022 21:36:24 T-wave abnormality now present Right bundle-branch block no longer present Electronically Signed On 09-08-24 12:10:34 VACCINE CUSTOMER REPRESENTATIVE by Beka Trujillo
== END 2024-09-05 13:19 | disposition home or self-care (01) ==
LOC: ER 09:18
DX: R53.1 Weakness (principal); R25.3 Fasciculation; E78.00 Pure hypercholesterolemia, unspecified
CPT/HCPCS: 85025; 81001; 80048; 36415; 83735; 85610; 82565; 80076; 84484; 83880; 70450; 70496; 70498; 71045; 99283; Q9967; 93005